=== PATIENT | female | born 1960 | race African-American/Black ===

== ENCOUNTER 2020-03-14 17:07 | Emergency (ER) | payer MEDICARE, SELFPAY ==
[2020-03-14 17:09] VITALS: BP 215/104; PULSE 97; RESP 15; TEMP 36.9; O2SAT 98
[2020-03-14 18:06] VITALS: BP 206/145; PULSE 97; RESP 22; O2SAT 97
[2020-03-14 18:17] VITALS: O2SAT 98
--- NOTE | 2020-03-14 18:35 | ED.GENADULT ---
HPI - General Adult General Chief complaint: Recheck/Abnormal Lab/Rx Stated complaint: BP elevated, just started new meds Time Seen by Provider: 03/14/20 17:47 Source: patient Mode of arrival: ambulatory Limitations: no limitations History of Present Illness HPI narrative: Patient checked her blood pressure today and was quite high so she came to the emergency room. She has no symptoms, no headache, no chest pain, no dizziness, no shortness of breath, no edema. She is on multiple blood pressure medicines, yesterday the had her stop her labetalol and start taking carvedilol due to an asthma medication. Prior to that change she states that her blood pressure was frequently 145 over something, and never this high. Onset (ago): hour(s) Exacerbating factors: none Treatments prior to arrival: none Related Data Home Medications Medication Instructions Recorded Confirmed amlodipine 03/14/20 atorvastatin 80 mg PO DAILY 03/14/20 carvedilol 12.5 mg PO BID 03/14/20 glipizide 10 mg PO DAILY 03/14/20 hydrochlorothiazide 25 mg PO DAILY 03/14/20 losartan 03/14/20 metformin 500 mg PO BID 03/14/20 montelukast mg 03/14/20 omeprazole 20 mg PO BID 03/14/20 Allergies Allergy/AdvReac Type Severity Reaction Status Date / Time No Known Allergies Allergy Verified 03/14/20 18:14 Review of Systems Review of Systems: All systems reviewed & are unremarkable except as noted in HPI and below [facility] Social History Social History Gender identity (if verbalized by the patient): Female Exam Const: General: no acute distress and alert Orientation/consciousness: patient oriented x3 HENMT: Head: normal to inspection Eyes: Pupils: Equal, round and reactive pupils present Resp: Effort & Inspection: normal respiratory effort Auscultation: clear to auscultation bilaterally Cardio: Rate: regular rate Rhythm: regular rhythm Skin: General skin exam: normal color Extrem: General: no pedal edema Psych: Mental Status: mental status grossly normal Course Course Emergency Course: Responded nicely to clonadine. Will give as PRN for SBP > 210. Not more than every 12 hrs. Will give referal to primary care and cardiology. Vital Signs Vital signs: Vital Signs Temperature 36.9 C 03/14/20 17:09 Pulse Rate 97 03/14/20 17:09 Respiratory Rate 15 03/14/20 17:09 Blood Pressure 215/104 H 03/14/20 17:09 Pulse Oximetry 98 03/14/20 17:09 Temperature 36.9 C 03/14/20 17:09 Pulse Rate 97 03/14/20 18:06 Respiratory Rate 22 H 03/14/20 18:06 Blood Pressure 206/145 H 03/14/20 18:06 Pulse Oximetry 98 03/14/20 18:17 Medical Decision Making Vital Signs Vital Signs: Vital Signs Temperature 36.9 C 03/14/20 17:09 Pulse Rate 97 03/14/20 17:09 Respiratory Rate 15 03/14/20 17:09 Blood Pressure 215/104 H 03/14/20 17:09 Pulse Oximetry 98 03/14/20 17:09 Temperature 36.9 C 03/14/20 17:09 Pulse Rate 97 03/14/20 18:06 Respiratory Rate 22 H 03/14/20 18:06 Blood Pressure 206/145 H 03/14/20 18:06 Pulse Oximetry 98 03/14/20 18:17 Discharge Plan Discharge Clinical Impression: Hypertension Qualifiers: Hypertension type: essential hypertension Qualified Code(s): I10 - Essential (primary) hypertension Patient Disposition: Home, Self-Care Condition: Improved Instructions: Antibiotic Form, Heart Healthy Diet (ED), Hypertension (ED) Additional Instructions: Take clonadine as prescribed. Check your blood pressure, if greater than 210 X 2 then take PRN medication. Follow up with primary care physician listed below and cardiology listed below to establish care as soon as possible. Return to ED if you have chest pain, shortness of breath or sever headache. Prescriptions: New clonidine HCl 0.1 mg tablet 0.1 mg PO PRN Qty: 7 RF: 0 No Action omeprazole 20 mg Capsule,Delayed Release(Dr/Ec) 20 mg PO BID RF: 0 me
[2020-03-14 19:00] VITALS: BP 215/98; PULSE 93; RESP 19
[2020-03-14 19:30] VITALS: BP 199/108; PULSE 92; O2SAT 97
--- NOTE | 2020-03-14 19:35 | ECG_ITS ---
Measurements Intervals [place] Rate: 82 P: 44 [place]: 164 QRS: -28 QRSD: 98 T: 19 QT: 377 QTc: 443 Interpretive Statements SINUS RHYTHM POSSIBLE LEFT ATRIAL ENLARGEMENT POSSIBLE LEFT VENTRICULAR HYPERTROPHY BORDERLINE R WAVE PROGRESSION, ANTERIOR LEADS BORDERLINE ECG Electronically Signed On 03-15-2020 8:26:53 [employer] by Rodney Montano D.O.
[2020-03-14] MEDS: cloNIDine HCL 0.1 MG TABLET PO (20:23)
[2020-03-14 20:38] VITALS: BP 161/98; PULSE 84; RESP 20; O2SAT 99
== END 2020-03-14 21:05 | disposition home or self-care (01) ==
PROVIDERS: Emergency Provider Emergency Medicine
DX: I10 Essential (primary) hypertension (principal); R94.31 Abnormal electrocardiogram [ECG] [EKG]; Z79.84 Long term (current) use of oral hypoglycemic drugs
CPT/HCPCS: 93005; 99283; A9270

== ENCOUNTER 2020-03-17 10:25 | Emergency (ER) | payer MEDICARE, SELFPAY ==
[2020-03-17 10:36] VITALS: BP 155/111; PULSE 82; RESP 16; TEMP 36.9; O2SAT 97
[2020-03-17 10:44] VITALS: BP 157/97; PULSE 82; RESP 18; TEMP 36.7; O2SAT 97
--- NOTE | 2020-03-17 11:23 | ECG_ITS ---
Measurements Intervals [place] Rate: 71 P: 38 ND: 175 QRS: -32 QRSD: 94 T: 32 QT: 405 QTc: 442 Interpretive Statements SINUS RHYTHM LEFT AXIS DEVIATION DELAYED PRECORDIAL R/S TRANSITION VOLTAGE CRITERIA FOR LVH BORDERLINE ECG Electronically Signed On 03-17-2020 14:49:55 [employer] by Rodney Montano D.O.
--- NOTE | 2020-03-17 11:23 | ED.GENADULT ---
HPI - General Adult General Chief complaint: Recheck/Abnormal Lab/Rx Stated complaint: htn Time Seen by Provider: 03/17/20 10:57 Source: patient History of Present Illness HPI narrative: Patient is a 59 y/o female complaining of hypertension. Related Data Home Medications Medication Instructions Recorded Confirmed amlodipine 03/14/20 atorvastatin 80 mg PO DAILY 03/14/20 carvedilol 12.5 mg PO BID 03/14/20 glipizide 10 mg PO DAILY 03/14/20 hydrochlorothiazide 25 mg PO DAILY 03/14/20 losartan 03/14/20 metformin 500 mg PO BID 03/14/20 montelukast mg 03/14/20 omeprazole 20 mg PO BID 03/14/20 Allergies Allergy/AdvReac Type Severity Reaction Status Date / Time No Known Allergies Allergy Verified 03/14/20 18:14 [facility] Social History Social History Gender identity (if verbalized by the patient): Female Course Vital Signs Vital signs: Vital Signs Temperature 36.9 C 03/17/20 10:36 Pulse Rate 82 03/17/20 10:36 Respiratory Rate 16 03/17/20 10:36 Blood Pressure 155/111 H 03/17/20 10:36 Pulse Oximetry 97 03/17/20 10:36 Temperature 36.7 C 03/17/20 10:44 Pulse Rate 82 03/17/20 10:44 Respiratory Rate 18 03/17/20 10:44 Blood Pressure 157/97 H 03/17/20 10:44 Pulse Oximetry 97 03/17/20 10:44 Medical Decision Making Vital Signs Vital Signs: Vital Signs Temperature 36.9 C 03/17/20 10:36 Pulse Rate 82 03/17/20 10:36 Respiratory Rate 16 03/17/20 10:36 Blood Pressure 155/111 H 03/17/20 10:36 Pulse Oximetry 97 03/17/20 10:36 Temperature 36.7 C 03/17/20 10:44 Pulse Rate 82 03/17/20 10:44 Respiratory Rate 18 03/17/20 10:44 Blood Pressure 157/97 H 03/17/20 10:44 Pulse Oximetry 97 03/17/20 10:44 Discharge Plan Discharge Prescriptions: No Action omeprazole 20 mg Capsule,Delayed Release(Dr/Ec) 20 mg PO BID RF: 0 metformin 500 mg Tablet 500 mg PO BID RF: 0 atorvastatin 80 mg Tablet 80 mg PO DAILY RF: 0 carvedilol 12.5 mg Tablet 12.5 mg PO BID RF: 0 glipizide 10 mg Tablet 10 mg PO DAILY RF: 0 amlodipine 5 mg Tablet RF: 0 montelukast 10 mg Tablet RF: 0 hydrochlorothiazide 25 mg Tablet 25 mg PO DAILY RF: 0 losartan 100 mg Tablet RF: 0 clonidine HCl 0.1 mg tablet 0.1 mg PO PRN Qty: 7 RF: 0
[2020-03-17] MEDS: amLODIPine BESYLATE 5 MG TABLET PO (11:31)
--- NOTE | 2020-03-17 11:37 | ED.GENADULT ---
HPI - General Adult General Chief complaint: Recheck/Abnormal Lab/Rx Stated complaint: htn Time Seen by Provider: 03/17/20 10:57 Source: patient History of Present Illness HPI narrative: Patient is a 59 y/o female complaining of hypertension. She states that her BP was in 190s systolic. She took Clonidine that was prescribed last Tuesday and it may have lower her BP somewhat. She denies any chest pain, SOB, headache, weakness or numbness. She was taking HCTZ 25 mg daily, Losartan 100 mg daily, Norvasc 5 mg daily and Coreg 12.5 mg twice daily. She was seen here 3 days ago for hypertension and Clonidine 0.1 mg was added to her antihypertensives. Related Data Home Medications Medication Instructions Recorded Confirmed amlodipine 03/14/20 atorvastatin 80 mg PO DAILY 03/14/20 carvedilol 12.5 mg PO BID 03/14/20 glipizide 10 mg PO DAILY 03/14/20 hydrochlorothiazide 25 mg PO DAILY 03/14/20 losartan 03/14/20 metformin 500 mg PO BID 03/14/20 montelukast mg 03/14/20 omeprazole 20 mg PO BID 03/14/20 Allergies Allergy/AdvReac Type Severity Reaction Status Date / Time No Known Allergies Allergy Verified 03/14/20 18:14 Review of Systems Constitutional: Constitutional: Denies chills, Denies fever(s), Denies headache(s) and Denies weakness Eyes: Eyes: Denies blurry vision ENT: Denies headache(s) and Denies neck pain Cardiovascular: Cardiovascular: Denies chest pain and Denies dyspnea Respiratory: Respiratory: Denies cough and Denies dyspnea Gastrointestinal: Gastrointestinal: Denies abdominal pain, Denies diarrhea, Denies nausea and Denies vomiting Genitourinary: Genitourinary: Denies hematuria and Denies dysuria Musculoskeletal: Musculoskeletal: Denies back pain and Denies neck pain Neurologic: Denies headache(s) and Denies weakness PMF Social History Social History Gender identity (if verbalized by the patient): Female Exam Const: General: no acute distress and well developed Orientation/consciousness: oriented to person, oriented to place, oriented to time and patient oriented x3 HENMT: Head: normocephalic Ears: external ears normal General nose exam: Normal external nose present Eyes: General: appearance normal, both eyes and all related structures Conjunctivae: conjunctivae normal Neck: Neck: normal visual inspection and full ROM Chest: Chest palpation & inspection: normal inspection of the chest and no tenderness Resp: Effort & Inspection: normal respiratory effort Auscultation: clear to auscultation bilaterally Cardio: Rate: regular rate Rhythm: regular rhythm GI: GI Palp: No abdominal tenderness and Yes Soft to palpation Skin: General skin exam: normal color and turgor normal Neuro: General: oriented to person, oriented to place, oriented to time and patient oriented x3 Cognition (Neuro): normal cognition Extrem: General: normal to inspection, full ROM and no pedal edema Psych: Appearance: grossly normal Mental Status: mental status grossly normal Affect: normal affect Course Vital Signs Vital signs: Vital Signs Temperature 36.9 C 03/17/20 10:36 Pulse Rate 82 03/17/20 10:36 Respiratory Rate 16 03/17/20 10:36 Blood Pressure 155/111 H 03/17/20 10:36 Pulse Oximetry 97 03/17/20 10:36 Temperature 36.7 C 03/17/20 10:44 Pulse Rate 84 03/17/20 14:10 Respiratory Rate 18 03/17/20 14:10 Blood Pressure 160/97 H 03/17/20 14:10 Pulse Oximetry 99 03/17/20 14:10 Medical Decision Making Vital Signs Vital Signs: Vital Signs Temperature 36.9 C 03/17/20 10:36 Pulse Rate 82 03/17/20 10:36 Respiratory Rate 16 03/17/20 10:36 Blood Pressure 155/111 H 03/17/20 10:36 Pulse Oximetry 97 03/17/20 10:36 Temperature 36.7 C 03/17/20 10:44 Pulse Rate 84 03/17/20 14:10 Respiratory Rate 18 03/17/20 14:10 Blood Pressure 160/97 H 03/17/20 14:10 Pulse Oximetry 99 03/17/20 14:1
[2020-03-17 12:08] LABS: Basophils Percent Auto 0.3 % (0.2-1.2); Eosinophils Absolute Auto 0.1 K/mm3 (0-0.3); Eosinophils Percent Auto 0.7 % (0-4.4); Hematocrit 41.4 % (37.0-47.0); Hemoglobin 14.2 g/dL (12.0-15.0); Immature Granulocyte Absolute 0.03 K/mm3 (0.00-0.031); Immature Granulocyte Percent A 0.3 % (0-0.5); Lymphocytes Absolute Auto 2.58 K/mm3 (0.9-3.2); Mean Corpuscular HGB Conc 34.3 g/dl (32-36); Mean Corpuscular Hemoglobin 31.1 pg (26-34); Mean Corpuscular Volume 90.6 fl (80-100); Mean Platelet Volume 11.6 fl (7.4-10.4); Monocytes Absolute Auto 0.8 K/mm3 (0.1-0.6); Monocytes Percent Auto 8.3 % (2.6-8.5); Neutrophils Percent Auto 63.4 % (45.5-73.1); Platelet Count Result 236 k/mm3 (150-375); Red Blood Count 4.57 M/mm3 (4.2-5.4); Red Cell Distribution Width 12.6 % (11.5-14.5); White Blood Count 9.5 K/mm3 (4.5-10.0)
[2020-03-17 12:14] LABS: Anion Gap 10 mmol/L (8-16); Blood Urea Nitrogen 14 mg/dL (7-17); Calcium 9.4 mg/dL (8.4-10.2); Carbon Dioxide 32 mmol/L (22-30); Chloride 98 mmol/L (98-107); Estimated CRCL calculation 84 ml/min; Estimated Glomerular Filt Rate > 60; Glucose 188 mg/dL (65-105); Potassium 3.5 mmol/L (3.4-5.0); Sodium 140 mmol/L (137-145)
[2020-03-17 12:39] VITALS: BP 160/84; PULSE 81; RESP 18; O2SAT 99
[2020-03-17 14:10] VITALS: BP 160/97; PULSE 84; RESP 18; O2SAT 99
== END 2020-03-17 14:11 | disposition home or self-care (01) ==
PROVIDERS: Emergency Provider Emergency Medicine
DX: I10 Essential (primary) hypertension (principal); R94.31 Abnormal electrocardiogram [ECG] [EKG]; Z79.84 Long term (current) use of oral hypoglycemic drugs
CPT/HCPCS: 36415; 80048; 85025; 93005; 99283; A9270

== ENCOUNTER 2021-11-20 00:43 | Inpatient (IN) | payer MEDICARE, MEDICAID, SELFPAY ==
[2021-11-20] VITALS (11 sets, daily range): BP systolic 136–194; BP diastolic 63–98; PULSE 65–97; RESP 14–20; TEMP 36.1–36.4; O2SAT 95–100
--- NOTE | ~2021-11-20 | US_ITS ---
US renal BI 11/20/2021 10:35 Procedure: Realtime transabdominal ultrasound of the kidneys and bladder. Indication: Acute renal insufficiency Comparison: No prior studies for comparison. Findings: Renal echotexture is normal bilaterally without hydronephrosis, contour deforming mass or r enal calculus. The right kidney measures 13.7 cm and left kidney measures 12.6 cm. Bladder is not di stended for evaluation. Incidental note is made of fatty infiltration of the liver. Impression: 1: Unremarkable renal ultrasound. No stones, masses or hydronephrosis. Reviewed, dictated and finalized at location A. Impression: 1: Unremarkable renal ultrasound. No stones, masses or hydronephrosis.
--- NOTE | 2021-11-20 01:34 | ED.GENADULT ---
HPI - General Adult General Chief complaint: Unspecified <Kaye De La Paz PA-C - Last Filed: 11/21/21 09:04> Stated complaint: rectal bleed, hx hemorrhoids <Kaye De La Paz PA-C - Last Filed: 11/21/21 09:04> Time Seen by Provider: 11/20/21 01:29 <Kaye De La Paz PA-C - Last Filed: 11/21/21 09:04> History of Present Illness HPI narrative: Patient is a 61-year-old female with a history of HTN, hemorrhoids here for evaluation of bright red blood on the tissue when she wiped after a BM earlier today. States that she has been constipated recently and has been straining to have bowel movements. She denies any blood mixed in the stool, any abdominal pain, rectal pain, headedness, dizziness, syncope. She has a history of hemorrhoids and states that this is how they usually present. Patient states that she has been compliant with her antihypertensives, which include losartan, hydrochlorothiazide, triamterene, carvedilol, amlodipine. She is not having any chest pain, shortness of breath, headaches, lightheadedness. <Kaye De La Paz PA-C - Last Filed: 11/21/21 09:04> Related Data Home medications: Home Medications Medication Instructions Recorded Confirmed amlodipine 5 mg tablet (Norvasc) 10 mg PO DAILY 03/14/20 11/20/21 atorvastatin 80 mg tablet 80 mg PO DAILY 03/14/20 11/20/21 glipizide 10 mg tablet 10 mg PO TID 03/14/20 11/20/21 metformin 500 mg tablet 500 mg PO BID 03/14/20 11/20/21 montelukast 10 mg tablet 1 mg PO BID 03/14/20 11/20/21 (Singulair) omeprazole 20 mg capsule,delayed 20 mg PO BID 03/14/20 11/20/21 release Advair HFA 2 puff BYMOUTH Q4H PRN Shortness 11/20/21 11/20/21 Of Breath Or Wheezing losartan 100 1 tablet PO DAILY 11/20/21 11/20/21 mg-hydrochlorothiazide 25 mg tablet metoprolol succinate 25 mg 25 mg PO DAILY 11/20/21 11/20/21 tablet,extended release 24 hr triamterene 37.5 1 cap PO DAILY 11/20/21 11/20/21 mg-hydrochlorothiazide 25 mg capsule <Kaye De La Paz PA-C - Last Filed: 11/21/21 09:04> Allergies/adverse reactions: Allergies Allergy/AdvReac Type Severity Reaction Status Date / Time No Known Allergies Allergy Verified 11/20/21 01:30 <Kaye De La Paz PA-C - Last Filed: 11/21/21 09:04> Review of Systems Review of Systems: Gen: Denies fevers or chills Eyes: Denies eye pain or visual change ENT: Denies congestion Respiratory: Denies shortness of breath or cough CV: Denies chest pain or palpitations GI: Reports blood on toilet tissue with wiping. Denies abdominal pain nausea, emesis or diarrhea denies burning, urgency, frequency or hematuria Musculoskeletal: Denies back pain or muscle pain Neuro: Denies numbness, tingling, weakness or focal weakness Skin: Denies rash Except as documented, all other systems reviewed and negative <Kaye De La Paz PA-C - Last Filed: 11/21/21 09:04> [facility] Past Medical History Medical History: Medical History Essential hypertension GERD (gastroesophageal reflux disease) Hyperlipidemia Type 2 diabetes mellitus <Kaye De La Paz PA-C - Last Filed: 11/21/21 09:04> Family History Family History: Family History Mother Diabetes mellitus Heart disease Hypertension Sibling ESRD (end stage renal disease) on dialysis <ANAID Dickson Last Filed: 11/21/21 09:04> Social History Social History: Social History Smoking status: Never smoker Alcohol intake: never Substance use: never Gender identity (if verbalized by the patient): Female Spiritual care concerns: No <MELANY Dickson-C - Last Filed: 11/21/21 09:04> Exam Narrative: APPEARANCE: Well appearing, no pain in distress, well-nourished. Head: Normocephalic and atraumatic. E
[2021-11-20 02:06] LABS: Basophils Percent Auto 0.4 % (0.2-1.2); Eosinophils Absolute Auto 0.1 K/mm3 (0-0.3); Eosinophils Percent Auto 1.2 % (0-4.4); Hematocrit 37.4 % (37.0-47.0); Hemoglobin 12.6 g/dL (12.0-15.0); Immature Granulocyte Absolute 0.02 K/mm3 (0.00-0.031); Immature Granulocyte Percent A 0.2 % (0-0.5); Lymphocytes Absolute Auto 2.17 K/mm3 (0.9-3.2); Lymphocytes Percent Auto 25.5 % (18.3-44.2); Mean Corpuscular HGB Conc 33.7 g/dl (32-36); Mean Corpuscular Hemoglobin 30.8 pg (26-34); Mean Corpuscular Volume 91.4 fl (80-100); Mean Platelet Volume 11.3 fl (7.4-10.4); Monocytes Absolute Auto 0.9 K/mm3 (0.1-0.6); Monocytes Percent Auto 10.9 % (2.6-8.5); Neutrophils Absolute Auto 5.3 K/mm3 (1.3-6.7); Neutrophils Percent Auto 61.8 % (45.5-73.1); Platelet Count Result 170 k/mm3 (150-375); Red Blood Count 4.09 M/mm3 (4.2-5.4); Red Cell Distribution Width 13.2 % (11.5-14.5); White Blood Count 8.5 K/mm3 (4.5-10.0)
[2021-11-20 02:17] LABS: Alanine Aminotransferase 23 U/L (6-35); Alkaline Phosphatase 91 U/L (38-126); Anion Gap 10 mmol/L (8-16); Aspartate Amino Transferase 21 U/L (14-36); Bilirubin,Total 0.5 mg/dL (0.2-1.3); Blood Urea Nitrogen 29 mg/dL (7-17); Calcium 9.4 mg/dL (8.4-10.2); Carbon Dioxide 25 mmol/L (22-30); Chloride 104 mmol/L (98-107); Estimated CRCL calculation 30 ml/min; Estimated Glomerular Filt Rate 25; Glucose 262 mg/dL (65-110); Potassium 3.4 mmol/L (3.4-5.0); Sodium 139 mmol/L (137-145)
[2021-11-20] MEDS: hydrALAZINE HCL 20 MG/ML VIAL 10 MG IV PUSH (02:55)
[2021-11-20 03:01] LABS: Appearance Urine Clear (Clear); Bilirubin Urine Negative (Negative); Blood Urine Trace-lysed (Negative); Glucose Urine UA Negative (Negative); Ketones Urine Negative (Negative); Leukocyte Esterase Ur 1+ LEU/UL (Negative); Nitrate Urine Negative (Negative); Protein Urine Negative (Negative); Urobilinogen Urine 0.2 mg/dL (<2.0)
[2021-11-20 03:04] LABS: Bacteria Urine Trace /hpf; Mucus Urine Rare /lpf; RBC Urine 0-2 /hpf (0-2); Squamous Epithelial Cell Urine Occasional /hpf (Few); WBC Urine 21-30 /hpf
[2021-11-20 03:33] LABS: Add Urine Microscopic? YES; Color Urine Light Yellow (Yellow)
[2021-11-20 03:35] LABS: SARS-CoV-2 RNA PCR Negative
--- NOTE | 2021-11-20 03:47 | PM.IMHP ---
H&P: HPI History of Present Illness Date/Time: 11/20/21 03:47 Chief Complaint: rectal bleeding Narrative: Patient is a 61-year-old female past medical history of essential hypertension, type 2 diabetes, hyperlipidemia, GERD, asthma presents to ED with complaints of rectal bleeding. Patient has known hemorrhoids, very constipated recently leading to her straining with bowel movements. For her blood pressure she has been on multiple agents, recently added triamterene. She is being managed by PCP, and does not see any specialist. Patient states she had a sister that was on dialysis. Her only complaint was hemorrhoids, she denies fevers, chills, nausea, vomiting, chest pain, shortness of breath. In the ED: Patient was found to be hypertensive 172 over a, patient given IV hydralazine 10 mg. Patient was found to have elevated creatinine at 2.4 ( less comparison is 0.8 in 2019). patient admitted for observation for acute kidney injury. Review of Systems Review of Systems: Constitutional: No Fever, No Chills, No Night Sweats, No Fatigue, No Malaise ENT/Mouth: No Hearing Changes, No Ear Pain, No Nasal Congestion, No Sinus Pain, No Hoarseness, No sore throat, No Rhinorrhea, No Swallowing Difficulty Eyes: No Eye Pain, No Redness, No Vision Changes Cardiovascular: No Chest Pain, No Palpitations, No Dyspnea on Exertion, No Orthopnea, No Claudication, No Edema Respiratory: No Cough, No Sputum, No Wheezing, No Shortness of Breath Gastrointestinal: No Nausea, No Vomiting, No Diarrhea, No Constipation, No Abdominal Pain, No Heartburn, endorses rectal bleed Genitourinary: No Dysuria, No Urinary Frequency, No Hematuria, No Urinary Incontinence, No Urgency Musculoskeletal: No Arthralgias, No Myalgias, No Joint Swelling, No Joint Stiffness, No Back Pain Skin: No Skin Lesions, No Pruritis, No Hair Changes Neuro: No Weakness, No Numbness, No Paresthesias, No Loss of Consciousness, No Syncope, No Dizziness, No Headache Psych: No Anxiety/Panic, No Depression, No Insomnia Heme: No Bruising, No Bleeding Lymph: No Adenopathy Endocrine: No Polyuria, No Polydipsia, No Temperature Intolerance PMFSH Past Medical History Medical History Essential hypertension GERD (gastroesophageal reflux disease) Hyperlipidemia Type 2 diabetes mellitus Family History Family History (Updated 11/20/21 @ 04:20 by Tamara Kendrick DO) Mother Diabetes mellitus Heart disease Hypertension Sibling ESRD (end stage renal disease) on dialysis Social History Social History Gender identity (if verbalized by the patient): Female Meds Home Medications and Allergies Home Medications Medication Instructions Recorded Confirmed Type amlodipine 5 mg tablet 03/14/20 History atorvastatin 80 mg tablet 80 mg PO DAILY 03/14/20 History carvedilol 12.5 mg tablet 12.5 mg PO BID 03/14/20 History clonidine HCl 0.1 mg tablet 0.1 mg PO PRN #7 tabs 03/14/20 Rx glipizide 10 mg tablet 10 mg PO DAILY 03/14/20 History hydrochlorothiazide 25 mg tablet 25 mg PO DAILY 03/14/20 History losartan 100 mg tablet 03/14/20 History metformin 500 mg tablet 500 mg PO BID 03/14/20 History montelukast 10 mg tablet mg 03/14/20 History omeprazole 20 mg capsule,delayed 20 mg PO BID 03/14/20 History release Allergies Allergy/AdvReac Type Severity Reaction Status Date / Time No Known Allergies Allergy Verified 11/20/21 01:30 Vital Signs Vital Signs - 24 hr 11/20/21 00:52 11/20/21 02:06 11/20/21 03:02 Temperature 36.4 C Pulse Rate 90 83 Respiratory Rate 18 18 14 Blood Pressure 194/87 H 172/88 H Pulse Oximetry 100 100 96 Oxygen Delivery Room Air Exam Narrative: - GENERAL: pleasant obese woman in no acute distress. Well-nourished. - EYES: EOMI. Anicteric. - HENT: Moist mucous membranes. - LUNGS: Clear to auscultation bilaterall
--- NOTE | 2021-11-20 05:00 | ADMGEN ---
This patient, Albertina Bass, was admitted to [facility] Surg Room 325-01. Patient/family oriented to hospital policies and general routines including ID bracelet, bed and alarms, visiting hours, pain management, procedures, bathroom and other care routines, personal items, smoking policy, room service/diet, and visiting hours. Information on how to activate the Rapid Response Team has been discussed. Patient/Family are encouraged to report perceived risks to care and to ask questions if they do not understand what they are told or what they should do.
[2021-11-20] MEDS: SODIUM CHLORIDE 0.9% IV 1,000 ML 100 ML IV CONT (06:01)
[2021-11-20 06:19] LABS: Albumin Level 4.1 g/dL (3.5-5.1); Anion Gap 8 mmol/L (8-16); Blood Urea Nitrogen 29 mg/dL (7-17); Calcium 9.2 mg/dL (8.4-10.2); Carbon Dioxide 25 mmol/L (22-30); Chloride 104 mmol/L (98-107); Cholesterol 146 mg/dL (0-200); Estimated CRCL calculation 30 ml/min; Estimated Glomerular Filt Rate 25; Glucose 265 mg/dL (65-110); HDL Direct 25 mg/dL; Phosphorus 5.9 mg/dL (2.5-4.5); Potassium 3.5 mmol/L (3.4-5.0); Sodium 137 mmol/L (137-145); Triglycerides 291 mg/dL (<150)
[2021-11-20 06:30] LABS: LDL Cholesterol Direct 62 mg/dL
[2021-11-20 06:40] LABS: Hemoglobin A1C 10.2 % (<5.7)
--- NOTE | 2021-11-20 07:47 | PM.IMPN ---
Progress Note: A&P Additional Plan See H&P for full detail as it was completed after midnight. Awaiting nephrology consult. Renal US. Sent urine lytes, spot protein and microalbumin creatinine ratio. Subjective Date/time seen: 11/20/21 07:47 Patient says she moved here form [facility] about a year ago and says her previous PCP always check her labs. She says she never had abnormal labs in the past. She says she feels much better. Exam Narrative: GENERAL: NAD, cooperative HEENT: Normocephalic, atraumatic, anicteric NECK: Supple CV: Normal S1, S2, RRR, No MRG RESP: CTAB, Normal work of breathing. Abdomen: Soft, non-tender, non-distended, +BS EXTREMITIES: Warm and well perfused, no clubbing, cyanosis, or edema. SKIN: warm, dry and intact. NEURO: CN 2-12 grossly intact. Objective Data Vital Signs Vital Signs: Vital Signs - 24 hr 11/20/21 00:52 11/20/21 02:06 11/20/21 03:02 Temperature 97.6 F Pulse Rate 90 83 Respiratory Rate 18 18 14 Blood Pressure 194/87 H 172/88 H Pulse Oximetry 100 100 96 Oxygen Delivery Room Air 11/20/21 04:08 11/20/21 04:30 11/20/21 04:40 Temperature 97.1 F L Pulse Rate 80 97 81 Respiratory Rate 14 19 18 Blood Pressure 167/93 H 162/89 H 189/98 H Pulse Oximetry 97 99 97 Oxygen Delivery Intake/Output Intake/Output: Intake & Output 11/17/21 11/18/21 11/19/21 11/20/21 23:59 23:59 23:59 23:59 Intake Total 0 Balance 0 Meds/Results Medications: Active Medications Generic Name Dose Route Start Last Admin Trade Name Freq PRN Reason Stop Dose Admin Acetaminophen 650 mg 11/20/21 04:21 Acetaminophen 325 Mg Tablet PO Q4H PRN Mild Pain (1-3) or Fever Amlodipine Besylate 10 mg 11/20/21 09:00 Amlodipine Besylate 5 Mg Tablet PO DAILY [facility] Atorvastatin Calcium 80 mg 11/20/21 09:00 Atorvastatin 40 Mg Tablet PO DAILY [facility] Carvedilol 75 mg 11/20/21 09:00 Carvedilol 25 Mg Tablet PO DAILY [facility] Dextrose 12.5 gm 11/20/21 04:23 Dextrose 50% 25 Gm/50 Ml Syringe IV PUSH PRN PRN Hypoglycemia Protocol Docusate Sodium 100 mg 11/20/21 09:00 Docusate Sodium 100 Mg Capsule PO Q12HR DORIS Glipizide 10 mg 11/20/21 09:00 Glipizide 5 Mg Tablet PO TID [facility]ORIS Glucagon 1 mg 11/20/21 04:23 Glucagon For Inj 1 Mg Vial IM PRN PRN Hypoglycemia Protocol Glucose 15 gm 11/20/21 04:23 Glucose Oral Gel 15 Gm Of Glucse In 37.5 Gm Tube PO PRN PRN Hypoglycemia Protocol Hydralazine HCl 10 mg 11/20/21 04:29 Hydralazine Hcl 20 Mg/Ml Vial IV PUSH Q4H PRN Blood Pressure - High Hydrochlorothiazide 25 mg 11/20/21 09:00 Hydrochlorothiazide 25 Mg Tablet PO DAILY DORIS Sodium Chloride 1,000 mls @ 100 mls/hr 11/20/21 04:25 11/20/21 06:01 Normal Saline Iv IV CONT 100 mls/hr .Q10H DORIS Administration Dextrose 1,000 mls @ 100 mls/hr 11/20/21 04:23 Dextrose 5% 1,000 Ml IVPB PRN PRN Hypoglycemia Protocol Insulin Aspart 2 - 5 units 11/20/21 08:00 Insulin Aspart (*Bk) 100 Units/Ml SUB-Q TIDWM [facility] Protocol Losartan Potassium 100 mg 11/20/21 09:00 Losartan Potassium 100 Mg Tablet PO DAILY [facility] Metformin HCl 500 mg 11/20/21 09:00 Metformin Hcl 500 Mg Tablet PO BID [facility] Metoprolol Succinate 25 mg 11/20/21 09:00 Metoprolol Succinate Ext Rel 25 Mg Tabcr PO DAILY [facility] Montelukast Sodium 10 mg 11/20/21 09:00 Montelukast Sodium 10 Mg Tablet PO DAILY [facility] Pantoprazole Sodium 40 mg 11/20/21 09:00 Pantoprazole 40 Mg Tablet PO BID [facility] Polyethylene Glycol 17 gm 11/20/21 09:00 Polyethylene Glycol 3350 17 Gm Powd.Pack PO QAM [facility] Fluticasone/Salmeterol 2 puff 11/20/21 09:00 Fluticasone/Salmeterol 115-21 Mcg Inhaler 1 Puff INHALATION DAILY [facility] Triamterene/Hydrochlorothiazide 1 tab 11/20/21 09:00 Triamterene 37.5 Mg/Hctz
[2021-11-20 08:11] LABS: Glucose Point of Care 212 mg/dl (65-105)
[2021-11-20] MEDS: INSULIN ASPART (*BKC) 100 UNITS/ML SUB-Q ×3 (09:15→16:57)
[2021-11-20] MEDS: carvediloL 25 MG TABLET 75 MG PO (09:16)
[2021-11-20] MEDS: MONTELUKAST SODIUM 10 MG TABLET PO (09:17)
[2021-11-20] MEDS: DOCUSATE SODIUM 100 MG CAPSULE PO ×2 (09:36→20:37)
[2021-11-20] MEDS: hydroCHLOROthiazide 25 MG TABLET PO (09:36)
[2021-11-20] MEDS: METOPROLOL SUCCINATE EXT REL 25 MG TABCR PO (09:36)
[2021-11-20] MEDS: PANTOPRAZOLE 40 MG TABLET PO ×2 (09:36→16:54)
[2021-11-20] MEDS: polyethylene glycoL 3350 17 GM POWD.PACK PO (09:36)
[2021-11-20] MEDS: ATORVASTATIN 40 MG TABLET 80 MG PO (09:37)
[2021-11-20] MEDS: amLODIPine BESYLATE 5 MG TABLET 10 MG PO (09:37)
[2021-11-20 11:50] LABS: Glucose Point of Care 225 mg/dl (65-105)
[2021-11-20] MEDS: FLUTICASONE/SALMETEROL 115-21 MCG INHALER 1 PUFF 2 PUFF INHALATION (16:39)
[2021-11-20 16:50] LABS: Creatinine Urine 49.7 mg/dL
[2021-11-20 16:52] LABS: Sodium Urine Random 71 meq/L
[2021-11-20 16:54] LABS: MALB Creatinine Ratio 61.6 mg/g (0-30); Microalbumin Urine Random 30.6 mg/L (0-16.7)
[2021-11-20 16:58] LABS: Glucose Point of Care 250 mg/dl (65-105)
[2021-11-20 18:14] LABS: Total Protein Urine Random 16 mg/dL
[2021-11-20 21:12] LABS: Glucose Point of Care 259 mg/dl (65-105)
[2021-11-21 05:37] VITALS: BP 165/93; PULSE 68; RESP 20; TEMP 36.3; O2SAT 96
[2021-11-21] MEDS: ACETAMINOPHEN 325 MG TABLET 650 MG PO (05:41)
[2021-11-21 06:40] LABS: Basophils Percent Auto 0.4 % (0.2-1.2); Eosinophils Absolute Auto 0.1 K/mm3 (0-0.3); Eosinophils Percent Auto 1.5 % (0-4.4); Hematocrit 38.2 % (37.0-47.0); Hemoglobin 13.1 g/dL (12.0-15.0); Immature Granulocyte Absolute 0.02 K/mm3 (0.00-0.031); Immature Granulocyte Percent A 0.3 % (0-0.5); Lymphocytes Absolute Auto 2.63 K/mm3 (0.9-3.2); Lymphocytes Percent Auto 38.5 % (18.3-44.2); Mean Corpuscular HGB Conc 34.3 g/dl (32-36); Mean Corpuscular Volume 90.5 fl (80-100); Mean Platelet Volume 11.7 fl (7.4-10.4); Monocytes Absolute Auto 0.7 K/mm3 (0.1-0.6); Monocytes Percent Auto 9.7 % (2.6-8.5); Neutrophils Absolute Auto 3.4 K/mm3 (1.3-6.7); Neutrophils Percent Auto 49.6 % (45.5-73.1); Platelet Count Result 174 k/mm3 (150-375); Red Blood Count 4.22 M/mm3 (4.2-5.4); Red Cell Distribution Width 13.3 % (11.5-14.5); White Blood Count 6.8 K/mm3 (4.5-10.0)
[2021-11-21 06:50] LABS: Anion Gap 4 mmol/L (8-16); Blood Urea Nitrogen 20 mg/dL (7-17); Calcium 8.9 mg/dL (8.4-10.2); Carbon Dioxide 33 mmol/L (22-30); Chloride 100 mmol/L (98-107); Estimated CRCL calculation 58 ml/min; Estimated Glomerular Filt Rate 56; Glucose 218 mg/dL (65-110); Potassium 3.4 mmol/L (3.4-5.0); Sodium 137 mmol/L (137-145)
[2021-11-21 06:51] LABS: Hemoglobin A1C 10.3 % (<5.7)
[2021-11-21 08:01] LABS: Glucose Point of Care 249 mg/dl (65-105)
[2021-11-21] MEDS: INSULIN ASPART (*BKC) 100 UNITS/ML SUB-Q ×4 (08:55→12:41)
[2021-11-21 09:01] VITALS: PULSE 70
[2021-11-21] MEDS: METOPROLOL SUCCINATE EXT REL 25 MG TABCR PO (09:01)
[2021-11-21] MEDS: carvediloL 25 MG TABLET 75 MG PO (09:01)
[2021-11-21] MEDS: MONTELUKAST SODIUM 10 MG TABLET PO (09:01)
[2021-11-21] MEDS: PANTOPRAZOLE 40 MG TABLET PO (09:01)
[2021-11-21] MEDS: amLODIPine BESYLATE 5 MG TABLET 10 MG PO (09:01)
[2021-11-21] MEDS: ATORVASTATIN 40 MG TABLET 80 MG PO (09:01)
[2021-11-21] MEDS: hydroCHLOROthiazide 25 MG TABLET PO (09:01)
--- NOTE | 2021-11-21 09:45 | PM.DS ---
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 hydralazine available # hemorrhoids - patient straining with bowel movements, hypertensive and not anemic - will treat constipation: start Colace and MiraLax scheduled - last colonoscopy: # other chronic conditions - will resume home meds after they are reconciled - [id number] type 2 diabetes: Will do Accu-Cheks a.c. HS, sliding scale insulin low dose, will resume home meds on discharge - hyperlipidemia: Continue atorvastatin - asthma: Continue singular - GERD: Continue PPI Diet: Regular DVT prophylaxis: SCDs (avoid chemoprophylaxis with hemorrhoids bleeding) Code status: Full code Disposition: observation, either home later today or tomorrow DS: Summary Hospital Course Reason for hospitalization: 61 years old female was admitted with with complaint of having hemorrhoids and was found to have acute q.d. today Hospital Course: 61 years old female was admitted complained of any hemorrhoids. Patient was found to have acute kidney injury. Patient blood pressure was high. Patient blood pressure was controlled and patient was given MiraLax for constipation patient repeat creatinine is 1.2. Today patient is feeling better and she was to complete discharge home. Patient was discharged in stable condition. Outpatient follow-up scheduled with primary care, Nephrology and Gastroenterology. Status at Discharge Cognitive/behavioral status at discharge: Stable Time Spent with Patient Time attestation: Total time spent providing and/or coordinating discharge services: less than 30 minutes Exam Narrative: GENERAL: NAD, cooperative HEENT: Normocephalic, atraumatic, anicteric NECK: Supple CV: Normal S1, S2, RRR, No MRG RESP: CTAB, Normal work of breathing. Abdomen: Soft, non-tender, non-distended, +BS EXTREMITIES: Warm and well perfused, no clubbing, cyanosis, or edema. SKIN: warm, dry and intact. NEURO: CN 2-12 grossly intact. DS: Data Data Completed and Pending Labs on day of discharge: Labs from last 24 hours 11/21/21 11/21/21 11/21/21 07:54 06:01 06:01 WBC 6.8 RBC 4.22 Hgb 13.1 Hct 38.2 MCV 90.5 MCH 31.0 MCHC 34.3 RDW 13.3 Plt Count 174 MPV 11.7 H Immature Gran % (Auto) 0.3 Neut % (Auto) 49.6 Lymph % (Auto) 38.5 Bertie % (Auto) 9.7 H Eos % (Auto) 1.5 Baso % (Auto) 0.4 Lymph # (Auto) 2.63 Bertie # (Auto) 0.7 H Eos # (Auto) 0.1 Baso # (Auto) 0.0 Abs Immat Gran (auto) 0.02 Absolute Neuts (auto) 3.4 Absolute Nucleated RBC 0.0 Nucleated RBC % 0.0 Sodium 137 Potassium 3.4 Chloride 100 Carbon Dioxide 33 H Anion Gap 4 L BUN 20 H Creatinine 1.20 H Estim Creat Clear Calc 58 Estimated GFR 56 L Glucose 218 H POC Capillary Glucose 249 H Hemoglobin A1c Calcium 8.9 Urine Protein Ur Random Microalbumin U Random Total Protein Ur Random Sodium Urine Creatinine Microalb/Creat Ratio 11/21/21 11/20/21 11/20/21 06:01 20:40 16:54 WBC RBC Hgb Hct MCV MCH MCHC RDW Plt Count MPV Immature Gran % (Auto) Neut %
[2021-11-21] MEDS: DOCUSATE SODIUM 100 MG CAPSULE PO (09:47)
[2021-11-21] MEDS: polyethylene glycoL 3350 17 GM POWD.PACK PO (09:47)
[2021-11-21 11:30] LABS: Glucose Point of Care 271 mg/dl (65-105)
== END 2021-11-21 13:50 | disposition home or self-care (01) | DRG 684 ==
LOC: ANHED 03:48 → ANH3MEDSUR 04:06
PROVIDERS: Family Medicine; Physician Assistant; Admitting Provider Student in an Organized Health Care Education/Training Program; Emergency Provider Emergency Medicine; Visit Provider Internal Medicine
DX: N17.9 Acute kidney failure, unspecified (principal); I10 Essential (primary) hypertension; J45.909 Unspecified asthma, uncomplicated; K21.9 Gastro-esophageal reflux disease without esophagitis; E78.5 Hyperlipidemia, unspecified; E11.9 Type 2 diabetes mellitus without complications; K64.9 Unspecified hemorrhoids; Z20.822 Contact with and (suspected) exposure to COVID-19
CPT/HCPCS: 36415; 76775; 80048; 80053; 80061; 80069; 81001; 81002; 81050; 82043; 82948; 83036; 83735; 84156; 84300; 85025; 87077; 87086; 87088; 94640; 96374; 99285; A9270; C9803; G0378; J0360; J1815; J7030; U0003; U0005

== ENCOUNTER 2022-03-10 14:30 | Outpatient (RCR) | payer MEDICARE, SELFPAY ==
[2021-12-30 09:26] VITALS: BMI 43.2
[2021-12-30 10:30] VITALS: BMI 43.2
== END 2022-03-15 09:15 | disposition home or self-care (01) ==
LOC: ANHDMC 14:30
PROVIDERS: PCP Family Medicine; Visit Provider Physician Assistant Medical
DX: E11.65 Type 2 diabetes mellitus with hyperglycemia (principal); Z71.3 Dietary counseling and surveillance; Z71.89 Other specified counseling
CPT/HCPCS: 97802; 99199; G0108; G0109

== ENCOUNTER 2022-05-01 11:21 | Outpatient (CLI) | payer MEDICARE, SELFPAY ==
--- NOTE | ~2022-05-01 | MM_ITS ---
EXAMINATION: MM screening melinda BI w dona HISTORY: Screening mammogram TECHNIQUE: Craniocaudal and mediolateral oblique 3-D tomosynthesis images were obtained and synthetic 2-D images were generated. CAD analysis was submitted and interpreted. COMPARISON: No prior mammogram is available for comparison at this institution. BREAST PARENCHYMAL COMPOSITION: The breasts are almost entirely fatty. FINDINGS: There is no evidence of suspicious mass, calcification, or architectural distortion to sugg est malignancy in either breast. There has been no suspicious interval change. IMPRESSION: 1. No mammographic evidence of malignancy. 2. Recommend routine screening mammography in one year. BI-RADS Category 1: Negative Reviewed, dictated and finalized at location A. CLERK
== END 2022-05-01 11:22 | disposition home or self-care (01) ==
PROVIDERS: PCP Family Medicine; Visit Provider Physician Assistant Medical
DX: Z12.31 Encounter for screening mammogram for malignant neoplasm of breast (principal)
CPT/HCPCS: 77063; 77067

== ENCOUNTER 2022-06-17 14:30 | Outpatient (RCR) | payer MEDICARE, SELFPAY | END 2022-06-24 15:04 | disposition home or self-care (01) | LOC: ANHDMC 14:30 | PROVIDERS: PCP Family Medicine; Visit Provider Physician Assistant Medical | DX: E11.65 Type 2 diabetes mellitus with hyperglycemia (principal); Z71.89 Other specified counseling | CPT/HCPCS: G0109 ==

== ENCOUNTER → 2022-07-16 10:49 | Outpatient (CLI) | payer MEDICARE, SELFPAY ==
--- NOTE | ~2022-07-16 | XR_ITS ---
Right Knee Technique: AP, lateral, and sunrise views were obtained. Clinical History: Pain Findings: No fracture or dislocation is seen. There is moderate to advanced degenerative change of th e medial compartment. There is mild degenerative change of the lateral and patellofemoral compartment s. Soft tissues are unremarkable. No joint effusion is seen. Impression: Tricompartmental osteoarthritis, as detailed above, worst in the medial compartment. Reviewed, dictated and finalized at location M. Impression: Tricompartmental osteoarthritis, as detailed above, worst in the medial compart ment.
== END ==
PROVIDERS: PCP Physician Assistant; Visit Provider Physician Assistant
DX: M17.11 Unilateral primary osteoarthritis, right knee (principal); M25.561 Pain in right knee
CPT/HCPCS: 73562

== ENCOUNTER 2022-11-10 08:17 | Outpatient (CLI) | payer MEDICARE, MEDICAID, SELFPAY ==
--- NOTE | ~2022-11-10 | US_ITS ---
EXAMINATION: US arterial ankle brachial ind DATE: 11/10/2022 09:29 INDICATION: Peripheral vascular disease TECHNIQUE: Segmental pressures and plethysmographic and Doppler waveforms of the brachial and lower e xtremity arteries were obtained. COMPARISON: None. FINDINGS: Right and left brachial artery pressures of 150 mm Hg and 136 mm Hg, respectively, are concordant (no rmal difference <= 30 mmHg). The right ankle-brachial index (ANDRAE) is 1.00 (normal >= 0.9-1.0). The right great toe-brachial index (TBI) is 0.57 (normal >= 0.65). Arterial Doppler waveforms are biphasic at the right dorsalis pedis a rtery and triphasic at the right posterior tibial artery, both with brisk systolic upstrokes. The left ANDRAE is 1.01. The left TBI is 0.54. Arterial Doppler waveforms are biphasic at the left poste rior tibial and triphasic at the left dorsalis pedis artery, both with brisk systolic upstrokes. IMPRESSION: 1. Mild arterial occlusive disease to the lower limbs with borderline bilateral ABIs and mildly decre ased bilateral TBIs. Reviewed, dictated and finalized at location A. IMPRESSION: 1. Mild arterial occlusive disease to the lower limbs with borderline bilateral ABIs and mildly decreased bilateral TBIs.
== END 2022-11-10 08:18 | disposition home or self-care (01) ==
PROVIDERS: PCP Family Medicine; Visit Provider Physician Assistant Medical
DX: I73.9 Peripheral vascular disease, unspecified (principal)
CPT/HCPCS: 93922

== ENCOUNTER 2024-01-31 01:06 | Day surgery (SDC) | payer MEDICARE, SELFPAY ==
[2024-01-05 12:29] VITALS: BMI 43.2
[2024-01-31 08:00] VITALS: BP 145/82; PULSE 61; RESP 18; TEMP 36.6; O2SAT 98
[2024-01-31 08:09] VITALS: BMI 41.9
[2024-01-31] MEDS: LACTATED RINGERS 1,000 ML 30 ML IV CONT (08:18)
--- NOTE | 2024-01-31 08:28 | WPDANESEPPF ---
Anes - Initial Pre Proc Eval Procedure: Operation Date: 01/31/24 09:30 Proposed Procedures p Screening Colonoscopy - Saad Leon MD Date/Time: 01/31/24 08:28 Surgeon: Saad Leon MD Pre Op Diagnosis: Neoplasm screening Patient Data Age: 63 Gender: F Height: 1.65 m Weight: 114.3 kg Last Vital Signs Temp 97.8 F 01/31/24 08:00 Pulse 61 01/31/24 08:00 Resp 18 01/31/24 08:00 BP 145/82 H 01/31/24 08:00 Pulse Ox 98 01/31/24 08:00 O2 Del Method Room Air 01/31/24 08:00 Allergies Allergy/AdvReac Type Severity Reaction Status Date / Time No Known Allergies Allergy Verified 01/05/24 12:25 Home Medications Medication Instructions Recorded Confirmed Type omeprazole 20 mg capsule,delayed 20 mg PO BID 03/14/20 01/05/24 History release insulin glargine 100 unit/mL (3 55 unit (0.55 mL) subcut BID #15 mL 02/22/22 01/05/24 Rx mL) subcutaneous pen (Lantus Solostar U-100 Insulin) atorvastatin 80 mg tablet 80 mg PO DAILY #90 tabs 04/21/22 01/05/24 Rx blood sugar diagnostic (APU SolutionsTouch #400 ea 04/22/22 09/22/23 Rx Verio test strips) blood-glucose meter,continuous #1 ea 04/22/22 09/22/23 Rx (Dexcom G6 Vocational Horticulture Instructor) blood-glucose sensor (Dexcom G6 #9 ea 04/22/22 09/22/23 Rx Sensor device) lancets 30 gauge (OneTouch Delica #400 ea 04/22/22 09/22/23 Rx Lancets) pen needle, diabetic 33 gauge x #600 ea 04/22/22 09/22/23 Rx 5/32 (Easy Comfort Pen [place]) blood-glucose transmitter (Dexcom #1 ea 10/26/22 09/22/23 Rx G6 Transmitter device) empagliflozin 10 mg tablet 10 mg PO DAILY 90 days #90 tabs 10/26/22 01/05/24 Rx (Jardiance) triamterene 37.5 1 cap PO DAILY #90 caps 05/18/23 01/05/24 Rx mg-hydrochlorothiazide 25 mg capsule amlodipine 5 mg tablet (Norvasc) 10 mg PO DAILY #180 tabs 07/29/23 01/05/24 Rx losartan 100 1 tablet PO DAILY #90 tabs 09/06/23 01/05/24 Rx mg-hydrochlorothiazide 25 mg tablet albuterol sulfate 90 mcg/actuation 1 inh inhalation Q4H PRN shortness 09/22/23 01/05/24 Rx aerosol inhaler of breath or wheezing #8.5 grams fluconazole 150 mg tablet 150 mg PO .PRN #2 tabs 09/22/23 01/05/24 Rx montelukast 10 mg tablet 10 mg PO QHS #90 tabs 09/22/23 01/05/24 Rx semaglutide 2 mg/dose (8 mg/3 mL) 2 mg (0.75 mL) subcut WEEKLY 90 09/22/23 01/05/24 Rx subcutaneous pen injector (Ozempic) days #9 mL hydralazine 10 mg tablet 10 mg PO TID #90 tabs 10/27/23 01/05/24 Rx carvedilol 25 mg tablet 75 mg PO DAILY #270 tabs 11/27/23 01/05/24 Rx insulin aspart See Rx Instructions .Route .COMPLEX 01/05/24 01/05/24 History (niacinamide)(U-100) 100 unit/mL(3 mL) subcutaneous pen (Fiasp FlexTouch U-100 Insulin) Patient hx anesthesia problems: none Family hx anesthesia problems: none Results Review: All pre-operative results and documents have been reviewed as part of the pre-operative evaluation. [facility] Past Medical History Medical History Essential hypertension GERD (gastroesophageal reflux disease) Hyperlipidemia Type 2 diabetes mellitus Surgical History Surgical History H/O carpal tunnel repair H/O hysterectomy with oophorectomy Family History Family History Mother Diabetes mellitus Heart disease Hypertension Sibling ESRD (end stage renal disease) on dialysis Unknown Asthma Hyperlipidemia Arthritis Social History Social History Smoking packs per day: 0.25 Smoking cigarettes per day: 5.0 Years smoked: 10 Smoking pack-years: 2.50 Smoking status: Former smoker Tobacco type: cigarettes Second hand tobacco smoke exposure: Yes Alcohol intake: current Drinks per week: 1 Substance use: never Substance use type: does not use Lack of Transport
[2024-01-31 08:30] LABS: Glucose Point of Care 179 mg/dl (65-105)
--- NOTE | 2024-01-31 08:46 | PM.HPGS ---
History of Present Illness History of Present Illness Consent: Risks, benefits, and alternatives have been discussed and questions answered. Patient agrees to proceed with procedure. Chief complaint: Neoplasm screening Narrative: Albertina Bass is a 63 year old female with colon polyp 4 years ago Review of Systems Review of Systems: All systems reviewed & are unremarkable except as noted in HPI and below PMFSH Past Medical History Medical History (Updated 01/31/24 @ 08:47 by Saad Leon MD) Essential hypertension GERD (gastroesophageal reflux disease) Hyperlipidemia Polyp, colonic Type 2 diabetes mellitus Surgical History Surgical History H/O carpal tunnel repair H/O hysterectomy with oophorectomy Family History Family History Mother Diabetes mellitus Heart disease Hypertension Sibling ESRD (end stage renal disease) on dialysis Unknown Asthma Hyperlipidemia Arthritis Social History Social History Smoking packs per day: 0.25 Smoking cigarettes per day: 5.0 Years smoked: 10 Smoking pack-years: 2.50 Smoking status: Former smoker Tobacco type: cigarettes Second hand tobacco smoke exposure: Yes Alcohol intake: current Drinks per week: 1 Substance use: never Substance use type: does not use Lack of Transportation: No Lack of Food: Never True Current Housing: I Have Housing Concerned About Future Housing: No Difficulty Paying Gas/Electric Bills: No Difficulty Paying for Meds: No Currently Unemployed: No Education: High School Diploma/GED Difficulty w/ Childcare or Family Care: No Living arrangements: alone Occupation/Education: retired Gender identity (if verbalized by the patient): Female Spiritual care concerns: No Agree to blood products: Yes Meds Home Medications and Allergies Home Medications Medication Instructions Recorded Confirmed Type omeprazole 20 mg capsule,delayed 20 mg PO BID 03/14/20 01/05/24 History release insulin glargine 100 unit/mL (3 55 unit (0.55 mL) subcut BID #15 mL 02/22/22 01/05/24 Rx mL) subcutaneous pen (Lantus Solostar U-100 Insulin) atorvastatin 80 mg tablet 80 mg PO DAILY #90 tabs 04/21/22 01/05/24 Rx blood sugar diagnostic (OneTouch #400 ea 04/22/22 09/22/23 Rx Verio test strips) blood-glucose meter,continuous #1 ea 04/22/22 09/22/23 Rx (Dexcom G6 Stitchdown Thread Laster) blood-glucose sensor (Dexcom G6 #9 ea 04/22/22 09/22/23 Rx Sensor device) lancets 30 gauge (OneTouch Delica #400 ea 04/22/22 09/22/23 Rx Lancets) pen needle, diabetic 33 gauge x #600 ea 04/22/22 09/22/23 Rx 5/32 (Easy Comfort Pen [place]) blood-glucose transmitter (Dexcom #1 ea 10/26/22 09/22/23 Rx G6 Transmitter device) empagliflozin 10 mg tablet 10 mg PO DAILY 90 days #90 tabs 10/26/22 01/05/24 Rx (Jardiance) triamterene 37.5 1 cap PO DAILY #90 caps 05/18/23 01/05/24 Rx mg-hydrochlorothiazide 25 mg capsule amlodipine 5 mg tablet (Norvasc) 10 mg PO DAILY #180 tabs 07/29/23 01/05/24 Rx losartan 100 1 tablet PO DAILY #90 tabs 09/06/23 01/05/24 Rx mg-hydrochlorothiazide 25 mg tablet albuterol sulfate 90 mcg/actuation 1 inh inhalation Q4H PRN shortness 09/22/23 01/05/24 Rx aerosol inhaler of breath or wheezing #8.5 grams fluconazole 150 mg tablet 150 mg PO .PRN #2 tabs 09/22/23 01/05/24 Rx montelukast 10 mg tablet 10 mg PO QHS #90 tabs 09/22/23 01/05/24 Rx semaglutide 2 mg/dose (8 mg/3 mL) 2 mg (0.75 mL) subcut WEEKLY 90 09/22/23 01/05/24 Rx subcutaneous pen injector (Ozempic) days #9 mL hydralazine 10 mg tablet 10 mg PO TID #90 tabs 10/27/23 01/05/24 Rx carvedilol 25 mg tablet 75 mg PO DAILY #270 tabs 11/27/23 01/05/24 Rx insulin aspart See Rx Instructions .Route .COMPLEX 01/05/24 01/05/24 History (niacinamide)(
[2024-01-31 09:15] VITALS: BP 112/62; PULSE 59; RESP 16; O2SAT 94
[2024-01-31 09:25] VITALS: BP 117/75; PULSE 57; RESP 18; O2SAT 97
[2024-01-31 09:30] LABS: Glucose Point of Care 156 mg/dl (65-105)
[2024-01-31 09:35] VITALS: BP 101/64; PULSE 55; RESP 21; O2SAT 98
== END 2024-01-31 09:49 | disposition home or self-care (01) ==
PROVIDERS: PCP Family Medicine; Referring Provider Physician Assistant Medical; Visit Provider Internal Medicine Gastroenterology
PROC: 0DJD8ZZ Inspection of Lower Intestinal Tract, Via Natural or Artificial Opening Endoscopic (ICD-10-PCS; CPT 45378; principal; 2024-01-31 09:30)
DX: Z12.11 Encounter for screening for malignant neoplasm of colon (principal); D12.2 Benign neoplasm of ascending colon; D12.4 Benign neoplasm of descending colon; K64.8 Other hemorrhoids; I10 Essential (primary) hypertension; E78.5 Hyperlipidemia, unspecified; K21.9 Gastro-esophageal reflux disease without esophagitis; E11.9 Type 2 diabetes mellitus without complications; E66.9 Obesity, unspecified; Z68.41 Body mass index [BMI] 40.0-44.9, adult; Z79.4 Long term (current) use of insulin; Z79.85 Long-term (current) use of injectable non-insulin antidiabetic drugs; Z79.84 Long term (current) use of oral hypoglycemic drugs; Z79.51 Long term (current) use of inhaled steroids; Z98.890 Other specified postprocedural states; Z87.891 Personal history of nicotine dependence; Z82.49 Family history of ischemic heart disease and other diseases of the circulatory system
CPT/HCPCS: 45385; 82948; 88305; J2003; J2704; J7120

== ENCOUNTER 2024-05-03 15:25 | Outpatient (CLI) | payer MEDICARE, SELFPAY ==
[2024-05-03 16:38] LABS: Add Urine Microscopic? NO; Appearance Urine Clear (Clear); Bilirubin Urine Negative (Negative); Blood Urine Negative (Negative); Color Urine Yellow (Yellow); Glucose Urine UA 3+ mg/dL (Negative); Ketones Urine Negative (Negative); Leukocyte Esterase Ur Negative LEU/UL (Negative); Nitrate Urine Negative (Negative); Protein Urine Negative (Negative); Specific Grav Ur 1.014 (1.001-1.035); Urobilinogen Urine 0.2 mg/dL (<2.0)
[2024-05-03 16:48] LABS: Alanine Aminotransferase 25 U/L (6-35); Albumin Level 4.4 g/dL (3.5-5.1); Alkaline Phosphatase 81 U/L (38-126); Anion Gap 1 mmol/L (4-12); Aspartate Amino Transferase 21 U/L (14-36); Bilirubin,Total 0.7 mg/dL (0.2-1.3); Blood Urea Nitrogen 17 mg/dL (7-17); Calcium 9.5 mg/dL (8.4-10.2); Carbon Dioxide 32 mmol/L (22-30); Chloride 103 mmol/L (98-107); Cholesterol 190 mg/dL (0-200); Estimated Glomerular Filt Rate > 60; Glucose 108 mg/dL (65-110); HDL Direct 39 mg/dL; Sodium 136 mmol/L (137-145); Triglycerides 267 mg/dL (<150)
[2024-05-03 17:00] LABS: LDL Cholesterol Direct 95 mg/dL
[2024-05-03 17:08] LABS: Hemoglobin A1C 10.2 % (<5.7)
[2024-05-03 17:27] LABS: Free T4 Free Thyroxine 0.95 ng/dL (0.78-2.19)
== END 2024-05-03 15:26 | disposition home or self-care (01) ==
PROVIDERS: Student in an Organized Health Care Education/Training Program; PCP Family Medicine; Visit Provider Family Medicine
DX: E78.5 Hyperlipidemia, unspecified (principal); I10 Essential (primary) hypertension; E11.9 Type 2 diabetes mellitus without complications; E55.9 Vitamin D deficiency, unspecified
CPT/HCPCS: 36415; 80053; 80061; 81003; 83036; 84439; 84443

== ENCOUNTER 2024-10-16 10:59 | Outpatient (CLI) | payer MEDICARE, SELFPAY ==
[2024-10-16 11:35] LABS: Basophils Percent Auto 0.6 % (0.2-1.2); Eosinophils Absolute Auto 0.2 K/mm3 (0-0.3); Eosinophils Percent Auto 2.1 % (0-4.4); Hematocrit 42.8 % (37.0-47.0); Hemoglobin 14.1 g/dL (12.0-15.0); Immature Granulocyte Absolute 0.02 K/mm3 (0.00-0.031); Immature Granulocyte Percent A 0.3 % (0-0.5); Lymphocytes Absolute Auto 2.83 K/mm3 (0.9-3.2); Lymphocytes Percent Auto 39.6 % (18.3-44.2); Mean Corpuscular HGB Conc 32.9 g/dl (32-36); Mean Corpuscular Hemoglobin 30.3 pg (26-34); Mean Platelet Volume 12.7 fl (7.4-10.4); Monocytes Absolute Auto 0.6 K/mm3 (0.1-0.6); Neutrophils Absolute Auto 3.5 K/mm3 (1.3-6.7); Neutrophils Percent Auto 49.4 % (45.5-73.1); Platelet Count Result 169 k/mm3 (150-375); Red Blood Count 4.65 M/mm3 (4.2-5.4); Red Cell Distribution Width 12.6 % (11.5-14.5); White Blood Count 7.2 K/mm3 (4.5-10.0)
--- OUTSIDE RECORDS SUMMARY | 2024-10-16 12:06 | XMS_ITS | Referral Summary ---
Author Organization [facility] at the [facility] Office Center Address [address] [place] [address] Care Team Providers Care Commercial Cleaner Name Role Phone Tessa Tan MD Primary Care Provider [phone] Allergies Active Allergy Reactions Criticality Noted Date Comments Lisinopril Cough Medium 03/08/2019 Medications Ventolin HFA 90 mcg/actuation inhaler 02/21/2020 Active amLODIPine (NORVASC) 10 mg tablet TK 1 T PO QD. 03/18/2020 Active Advair HFA 115-21 mcg/actuation inhaler 02/21/2020 Active glipiZIDE XL (GLUCOTROL XL) 10 mg 24 hr tablet 03/28/2020 Active hydroCHLOROthiaz caio (HYDRODIURIL) 25 mg tablet 02/21/2020 Active Lantus Solostar U-100 Insulin 100 unit/mL (3 mL) insulin pen 02/21/2020 Act collins labetaloL (NORMODYNE,TRAND ATE) 200 mg tablet 02/21/2020 Active losartan (COZAAR) 100 mg tablet 02/21/2020 Active metFORMIN (GLUCOPHAGE) 500 mg tablet 02/21/2020 Active montelukast (SINGULAIR) 10 mg tablet 02/21/2020 Active carvedilol CR (COREG CR) 80 mg 24 hr capsule 04/04/2020 Activ e cloNIDine (CATAPRES) 0.3 mg tablet TAKE 1 TABLET BY MOUTH AT NIGHT 04/15/2020 Active Active Problems Problem Noted Date Diagnosed Date Severe obstructive sleep apnea 05/10/2018 Intermittent asthma, not well controlled 015 Allergic rhinitis due to pollen 03/21/2015 GERD without esophagitis 02/06/2015 Rheumatoid arthritis 02/06/2015 Dysphagia 12/31/2014 Immunizations Immunization Administration Dates Next Due DT 06/02/2003 Tdap 04/07/2019 Social History Tobacco Use Types Packs/Day Years Used Date Smoking Tobacco: Former Cigarettes 0.3 13 1 - 2011 Smokeless Tobacco: Never Personal Safety Answer Date Recorded Getting School Help Needed Not on file 07/16 Comments Unknown Sex and Gender Information Value Date Recorded Sex Assigned at Not on file Legal Sex Female 6:36 PM APARTMENT LEASING AGENT Gender Identity Not on file Sexual Orientation Not on file Last Filed Vital Signs Vital Sign Reading Time Taken Comments Blood Pressure 166/101 05/05/2020 3:42 PM APARTMENT LEASING AGENT Pulse 86 05/05/2020 3:42 PM APARTMENT LEASING AGENT Temperature 36.6 C (97.8 F) 05/05/2020 3:42 PM APARTMENT LEASING AGENT Respiratory Rate 18 05/05/2020 3:42 PM APARTMENT LEASING AGENT Oxygen Saturation 95% 05/05/2020 3:42 PM APARTMENT LEASING AGENT Inhaled Oxygen Concentration - - Weight 112 kg (247 lb) 05/05/2020 3:42 PM APARTMENT LEASING AGENT Height 165.1 cm (5' 5) 05/05/2020 3:42 PM APARTMENT LEASING AGENT Body Mass Index 41.1 05/05/2020 3:42 PM APARTMENT LEASING AGENT Plan of Treatment Not on file Insurance [employer] MEDICARE PPO IDPA IDPA Care Teams Commercial Cleaner Relationship Specialty Start Date End Date Tessa Tan MD [address] [place] [address] PCP - General Internal Medicine 04/15/20
--- OUTSIDE RECORDS SUMMARY | 2024-10-16 12:06 | XMS_ITS | Clinical Summary ---
Author Organization [facility] at the [facility] Office Center Address [address] [place] [address] Care Team Providers Care Email Production Consultant Name Role Phone Tessa Tan MD Primary Care Provider [phone] Allergies Active Allergy Reactions Criticality Noted Date [...] Dates Next Due DT 06/02/2003 Tdap 04/07/2019 Surgical History Surgery Date Site/Laterality Comments CARPAL TUNNEL RELEASE Bilateral HYSTERECTOMY Medical History Medical History Date Comments HTN (hypertension) DM (diabetes mellitus) (HCC) Asthma Family History Medical History Relation Name Comments Diabetes Brother Asthma Mother Diabetes Mother Hypertension Mother Diabetes Sister 1 Diabetes Sister 2 Relation Name Status Comments Brother Alive Father Mother Alive Sister 1 Alive Sister 2 Alive Social History Tobacco Use Types Packs/Day Years Used Date Smoking Tobacco: Former Cigarettes 0.3 13 1 999 - 2012 Smokeless Tobacco: Never Personal Safety Answer Date Recorded Getting School Help Needed Not on file 07/16 Comments Unknown Sex and Gender Information Value Date Recorded Sex Assigned at Not on file Legal Sex Female 6:36 PM WE[employer]NESS HE[employer] COACH Gender Identity Not on file Sexual Orientation Not on file Obstetrics History Last Filed Vital Signs Vital Sign Reading Time Taken Comments Blood Pressure 166/101 05/05/2020 3:42 PM WE[employer]NESS HE[employer] COACH Pulse 86 05/05/2020 3:42 PM WE[employer]NESS HE[employer] COACH Temperature 36.6 C (97.8 F) 05/05/2020 3:42 PM WE[employer]NESS HE[employer] COACH Respiratory Rate 18 05/05/2020 3:42 PM [employer] HE[employer] COACH Oxygen Saturation 95% 05/05/2020 3:42 PM WE[employer]NESS HE[employer] COACH Inhaled Oxygen Concentration - - Weight 112 kg (247 lb) 05/05/2020 3:42 PM WE[employer]NESS HE[employer] COACH Height 165.1 cm (5' 5) 05/05/2020 3:42 PM WE[employer] HE[employer] COACH Body Mass Index 41.1 05/05/2020 3:42 PM WE[employer]NESS HE[employer] COACH Plan of Treatment Not on file Insurance [employer] MEDICARE PPO IDPA IDPA Care Teams Email Production Consultant Relationship Specialty Start Date End Date Tessa Tan MD [address] [place] [address] PCP - General Internal Medicine 04/15/20
--- OUTSIDE RECORDS SUMMARY | 2024-10-16 12:06 | XMS_ITS | CONTINUITY OF CARE DOCUMENT ---
Author Name pamelagilma pamelagilma Address Unknown Organization [facility] Address [address] [place] [address] Phone [phone] Care Team Providers Care Rn Medical Surgical Name Role Phone Marcel Osuna MD Unavailable [phone] Marcel Osuna MD Unavailable [phone] PROBLEMS Condition Status Date Provider Notes Cardiology examination active Marcel Osuna MD Diabetes, Type 2 active Marcel Osuna MD Hypertension active Marcel Osuna MD JOSE - on CPAP active Marcel Osuna MD Asthma active Marcel Osuna MD (History of) ENCOUNTERS Date Type Provider Location Encounter Diag nosis - In-person encounter Office Visit Macrel Osuna MD [facility] - In-person encounter Office Visit Marcel Osuna MD [facility] Cardiology examinationDiabetes , Type 2HypertensionOSA - on CPAPAsthma VITAL SIGNS Date Observation Value Provider Body Mass Index (Ratio) 43.26 kg/m2 Janeth Osuna MD blood pressure, diastolic 80 mm[Hg] Arianne Lee blood pressure, systolic 130 mm[Hg] Karen Lee oxygen saturation, oximetry 95 % Jason Lee respiratory rate E&M 16 /min Meri eLe pulse rate 85 /min Jason quiles weight E&M 260 [lb_av] Jason quiles height E&M 65 [in_i] Jason Dickson azucena Body Mass Index (Ratio) 43.43 kg/m2 Janeth Osuna MD oxygen saturation, oximetry 97 % [facility] pulse rate 62 /min [facility] [place] height E&M 65 [in_i] [facility] weight E&M 261 [lb_av] [facility] blood pressure, diastolic 97 mm[Hg] [facility], systolic 180 mm[Hg] Grisel [facility] respiratory rate E&M 16 /min [facility] [place] ALLERGIES No Known Drug Allergies HISTORY OF MEDICATION USE Medication Status Instructions Dates Provider Indications Com ments atorvastatin 80 mg tablet active TAKE 1 TABLET BY MOUTH EVERY NIGHT [facility] metformin 500 mg tablet active TAKE 1 TABLET BY MOUTH TWICE DAILY [facility] hydrochlorothiazide 25 mg tablet active Take 1 tablet by mouth once a day Jsaon Lee losartan-hydrochloroth iazide 100-25 mg tablet active TAKE 1 TABLET BY MOUTH DAILY [facility] fluticasone propionate 50 mcg/actuation spray,suspension active Maybee 1 spray into both nostrils once a day Jason Lee metoprolol succinate 25 mg tablet extended release 24 hr active TAKE 1 TABLET BY MOUTH DAILY IN THE MORNING [facility] montelukast 10 mg tablet active TAKE 1 TABLET BY MOUTH EVERY DAY [facility] amlodipine 10 mg tablet active TAKE 1 TABLET BY MOUTH EVERY DAY. [facility] omeprazole 20 mg capsule,delayed release(DR/EC) active TAKE 1 CAPSULE BY MOUTH TWICE DAILY [facility] glipizide 10 mg tablet extended release 24hr active TAKE 1 TABLET BY MOUTH EVERY DAY [facility] carvedilol 25 mg tablet active Take 1 tablet by mouth twice a day Jason Crawford U-100 Insulin 100 unit/mL solution active Inject subcutaneously twice a day 30 Units in the morning and 40 Units in the evening Jason Lee SOCIAL HISTORY Date Observation Value Provider drug use no Marcel Osuna MD alcohol use no Marcel Osuna MD social history E&M S moking History: Reji chavez is a former smoker. Marcel Osuna MD social history reviewed E&M revi ewed - no changes required Marcel Osuna MD number of years as a smoker 20 a Jason Lee cigarette use yes Jason Daryl blackazucena smoking status Former smoker Jason Be social history E&M S moking History: Reji chavez is a former smoker. Marcel Osuna MD social history reviewed E&M revi ewed - no changes required Marcel Osuna MD number of years as a smoker 20 a Chastity [place] cigarette use yes Chastity [place] smoking status Former smoker Chastity Hog ue FAMILY HISTORY Family Member Condition Mother Family History of Hy pertension: Mother Family History of Hy perlipidemia: Mother Family History of Di abetes: INSURANCE PROVIDERS Payer name Policy type / Coverage type [facility] libertarian ID [employer] HMO [id number] ADVANCE DIRECTIVES Name Date DISCUSSED - NO DECISION MADE TREATMENT PLAN Date Name Performer [id number],C,per pcp Marcel Osuna MD [id number],C, B P today: 130/80 P rior BP: 180/97 (01/23/2021) Marcel Osuna MD [id number],S, Marcel Osuna MD [id number],C, N ormally not this high. Stressed today B P today: 180/97 Her updated medication list for this problem includes: Hydrochlorothiazide 25 Mg Tablet (Hydrochlorothiazide) Losartan-hydrochlorothiazide 100-25 Mg Tablet (Losartan-hydrochlorothiazide) ..... Take 1 tablet by mouth daily Metoprolol Succinate 25 Mg Tablet Extended Release 24 Hr (Metoprolol succinate) ..... Take 1 tablet by mouth daily in the morning Amlodipine 10 Mg Tablet (Amlodipine) ..... Take 1 tablet by mouth every day. Carvedilol 25 Mg Tablet (Carvedilol) Marcel Osuna MD Cardiology:per pcp Marcel Osuna MD Cardiology: B P today: 130/80 P rior BP: 180/97 (01/23/2021) Marcel Osuna MD Cardiology Marcel Osuna MD Cardiology: N ormally not this high. Stressed today B P today: 180/97 Her updated medication list for this problem includes: Hydrochlorothiazide 25 Mg Tablet (Hydrochlorothiazide) Losartan-hydrochlorothiazide 100-25 Mg Tablet (Losartan-hydrochlorothiazide) ..... Take 1 tablet by mouth daily Metoprolol Succinate 25 Mg Tablet Extended Release 24 Hr (Metoprolol succinate) ..... Take 1 tablet by mouth daily in the morning Amlodipine 10 Mg Tablet (Amlodipine) ..... Take 1 tablet by mouth every day. Carvedilol 25 Mg Tablet (Carvedilol) Marcel Osuna MD Date Name Complete Echo CT, Coronary Calcium Score HISTORY OF PROCEDURES Procedure Date Procedure Name Provider Procedure Notes S tatus EKG Marcel Osuna MD completed
--- OUTSIDE RECORDS SUMMARY | 2024-10-16 12:06 | XMS_ITS | Continuity of Care Document ---
Author Organization [facility] Address [address] [place] [id number] Phone Care Team Providers Care Area Representative Name Role Phone Zach Collins MD Unavailable Unavailable Allergies, Adverse Reactions, Alerts Substance Reaction Status Criticality No Known Allergies Active No Inform ation Medications Medication Instructions Dosage Effective Dates (start - stop) Status Comments hydrocortisone 2.5 % topical cream with perineal applicator apply one dose at bedtime with applicator to the affected area(s) for 6 nights, then as needed - Active omeprazole 20 mg tablet,delayed release take 1 Tablet by Oral route once daily - Active Cancel the previous order for Omeprazole 20mg bid. Insurance will only cover once per day dosing. Pt will purchse the second dose otc. hydrochlorothiazide 25 mg tablet take 1 tablet by oral route every day 25 MG - Active labetalol 100 mg tablet take 2 tablet by oral route 2 times every day 200 MG - Active Lantus Solostar U-100 Insulin 100 unit/mL (3 mL) subcutaneous pen inject 36 units by subcutaneous route at HS - Active metformin 500 mg tablet take 1 tablet by ORAL route 2 times every day with morning and evening meals 500 MG - Active glipizide 5 mg tablet take 1 tablet by oral route every day before meals 5 MG - Active Preparation H Hydrocortisone 1 % topical cream apply by topical route every day to the affected area(s) - Active Ventolin HFA 90 mcg/actuation aerosol inhaler inhale 2 puff by inhalation route every 4 - 6 hours as needed - Active meloxicam 15 mg tablet take 1/2 tablet by oral route twice day - Active fluticasone 50 mcg/actuation nasal spray,suspension inhale 1 spray by intranasal route every day in each nostril 50 MCG - Active amlodipine 10 mg tablet take 1 tablet by oral route every day 10 MG - Active Procedures Procedure Date Colonoscopy Flex; W/remov Les- 20 Moderate Sedation - Same Physician Colonoscopy Flex; Dx (sep Pro) 18 Moderate Sedation - Same Physician Colonoscopy Flex; W/remov Les- Colonoscopy; W/ Injection Ugi Endo; Dx W/wo Collec Specm 18 Moderate Sedation - Same Physician Level Iv-surg Path Gross/t, Lvl IV ASC Facility Charge Colonoscopy Flex; W/remov Les- 17 Moderate Sedation - Same Physician Offic/outpt E&m Estab Low-mod 7 Offic/outpt E&m Estab Minor Offic/outpt E&m Estab Low-mod 5 Ugi Endo; W/bx 1/mx ASC Facility Charge Level Iv-surg Path Gross/t, Lvl IV Special Stains; Grp I Jimmie Offic/outpt E&m Estab Mod-hi 2 15 Zero Ticket [facility] Facility Charge Colonoscopy Flex; W/remov Les- 13 Level Iv-surg Path Gross/micro 13 Advance Directives Directive Yes / No Effective Date File Name No Information Encounters Encounter Description Practice Location Reason(s) For Visit Diagnoses Date Provider Providers Copied on Encounter [facility], [address] [place] [address], [place], [place], [id number] tel:[phone] [facility] No Information 0 Dennis Serrano. [address] [place] [address], [id number], . tel:[phone] [facility], [address] [place] [address], [place], [place], [id number] tel:[phone] [facility] No Information 0- 0 Casi REYES Ilche. [address] [place] [address], [id number], [place]. tel:[phone] Referring Provider: Guillermo Gaitan MD, [address] [place] [address], [id number]. tel:[phone] [facility], [address] [place] [address], [id number] tel:[phone] [facility] No Information 0 Casi REYES Il[place]. [address] [place] [id number], [place]. tel:[phone] Referring Provider: Guillermo Gaitan MD, [address] [place] [address], [id number]. tel:[phone] [facility], [address] [place] [address], [id number] tel:[phone] [facility] No Information 8 Casi REYES Ilche. [address] [place] [address], [id number], [place]. tel:[phone] Referring Provider: Guillermo Gaitan MD, [address] [place] [address], [id number]. tel:[phone] [facility], [address] [place] [address], [id number] tel:[phone] [facility] No Information 8 Casi REYES Ilche. [address] [place] [address], [id number], [place]. tel:[phone] Referring Provider: Guillermo Gaitan MD, [address] [place] [address], [id number]. tel:[phone] [facility], [address] [place] [address], [id number] tel:[phone] [facility] Abnormal finding on diagnostic imaging of other part of digestive tract 7 John Elizabeth. [address] [place] [address], [id number], [place]. tel:[phone] [facility], [address] [place] [address], [id number] tel:[phone] [facility] No Information Srikanth Adams. [address] [place] [address], [id number], [place]. tel:[phone] Referring Provider: Guillermo Gaitan MD, [address] [place] [address], [id number]. tel:[phone] [facility], [address] [place] [address], [id number] tel:[phone] [facility] No Information [facility]. [address] [place] [address], [id number], [place]. tel:[phone] Referring Provider: Bryan Shepard, [address] [place] [address], [id number]. tel:[phone] [facility], [address] [place] [address], [id number] tel:[phone] [facility] Hemorrhage of anus and rectumOther hemorrhoidsB enign neoplasm of cecumBenign neoplasm of descending colon Srikanth Adams. [address] [place] [address], [id number], [place]. tel:[phone] Referring Provider: Guillermo Gaitan MD, [address] [place] [address], [id number]. tel:[phone] Offic/outpt E&m Estab Low-mod [facility], [address] [place] [address], [id number] tel:[phone] [facility] hemorrhoids (chief complaint) Rectal bleedingPers onal history of colonic polypsConsti pation, unspecifiedU nspecified hemorrhoids Collin Parra. [address] [place] [address], [place], [place], [id number], [place]. tel:[phone] Referring Provider: Guillermo Gaitan MD, [facility] [place], [address]. tel:[phone] [facility], [address] [place] [address], [id number] tel:[phone] [facility] No Information 6 Terri Mohan. [address] [place] [address], [id number], [place]. tel:[phone] Offic/outpt E&m Estab Minor [facility], [address] [place] [address], [id number] tel:[phone] [facility] colorectal complaints (chief complaint) Constipation , unspecifiedH elicobacter pylori [H. pylori] as the cause of diseases classified elsewherePer autumn history of colonic polypsLong term use of non-steroida l anti-inflamm atories 6 Collin Parra. [address] [place] [address], [id number], [place]. tel:[phone] Referring Provider: Guillermo Gaitan MD, [address] [place] [address], [id number]. tel:[phone] [facility], [address] [place] [address], [id number] tel:[phone] [facility] Helicobacter pylori [H. pylori] as the cause of diseases classified elsewhere 5 Collin Parra. [address], [place], [id number], [place]. tel:[phone] Offic/outpt E&m Estab Low-mod [facility], [address] [place] [address], [id number] tel:[phone] [facility] H pylorit gastritis (chief complaint) Helicobacter pylori [H. pylori] as the cause of diseases classified elsewhere 5 Collin [employer] Aida. [address], [place], [id number], [place]. tel:[phone] [facility], [address] [place] [address], [id number] tel:[phone] [facility] Helicobacter pylori [H. pylori] as the cause of diseases classified elsewhere 5 Collin Parra. [address] [place] [address], [id number], [place]. tel:[phone] [facility], [address] [place] [address], [id number] tel:[phone] [facility] H. pylori GI infection 5 Sajan Steiner. [address] [place] [address], [id number], [place]. tel:[phone] [facility], [address] [place] [address], [id number] tel:[phone] [facility] DysphagiaDis order, esophageal NOSGastritis NEC w/o hemorrhageDu odenal ulcer, H.pylori 5 Sajan Steiner. [address] [place] [address], [id number], [place]. tel:[phone] [facility], [address] [place] [address], [id number] tel:[phone] [facility] No Information [facility]. [address] [place] [address], [id number], [place]. tel:[phone] Referring Provider: Jatin Alex, [address] [place] [address], [id number]. tel:[phone] [facility], [address] [place] [address], [id number] tel:[phone] [facility] No Information 5 Amanuel REYES [facility]. [address] [place] [address], [id number], [place]. tel:[phone] Offic/outpt E&m Estab Mod-hi 2 [facility], [address] [place] [address], [id number] tel:[phone] [facility] upper GI complaints (chief complaint) Constipation Burning epigastric pain 5 Collin SPAULDINGN Aida. [address] [place] [address], [id number], [place]. tel:[phone] Zero Ticket [facility], [address] [place] [address], [id number] tel:[phone] [facility] [facility] [employer] [facility] No Information 5 John Elizabeth. [address] [place] [address], [id number], [place]. tel:[phone] [facility], [address] [place] [address], [id number] tel:[phone] [facility] No Information 3 [facility]. [address] [place] [address], [id number], [place]. tel:[phone] Referring Provider: Glenn Watt, [address] [place] [address], [id number]. tel:[phone] [facility], [address] [place] [address], [id number] tel:[phone] [facility] Colon polypScreeni ng for colon cancer 3 John Elizabeth. [address] [place] [address], [id number], [place]. tel:[phone] [facility], [address] [place] [address], [id number] tel:[phone] [facility] No Information 3 John Elizabeth. [address] [place] [address], [id number], [place]. tel:[phone] [facility], [address] [place] [address], [id number] tel:[phone] [facility] No Information 3 John Elizabeth. [address] [place] [address], [id number], [place]. tel:[phone] Family History Family Member Type Diagnosis Age At Onset Mother Problem (finding) Colon polyps Problem (finding) No family history of Cr ohn's disease Problem (finding) No family history of Ca ncer, colon Payers Payer name Insurance type Covered green party ID Nando ruiz(s) No Information Social History Type Description Quantity Date Captured Comments Sex Female Smoking Status No Information Chief Complaint And Reason For Visit No Information Reason For Referral Reason For Referral No Information Plan Of Treatment Date Type Action Status Patient Education Colonoscopy: Before You r Procedure completed Patient Education Hemorrhoids: After Your Visit completed Patient Education Colon Polyps: After You r Visit completed Patient Education Colonoscopy: Before You r Procedure completed Patient Education Rubber Band Ligation fo r Hemorrhoids: completed Patient Education Upper GI Endoscopy: Bef mireya Your Proced completed History Of Present Illness Encounter Date Complaint History Of Prese nt Illness hemorrhoids Miss Bass is a 56 year old female who is here today at the request of Dr Gaitan for hemorrhoids. She had a colonoscopy in July 2012 which showed small internal hemorrhoids as well as a sigmoid tubular adenoma. Over the past few months, she has been experincing painless bright red blood with wiping, BM's are twice a day on Senna. She has tried baths as well as Preparation H with worseing hematochezia. Her mother had colon polypsDenies change in appetite or weight loss. Denies UGI symptoms. June 2016: Normal CMP and TSH August 2016: KUB-nonspecific bowel gas pattern colorectal complaints Miss Bass is a 55 year old female who is here today for an RTC of H pylori gastritis. She has a known history of HTN, arthritis on Meloxicam and Naproxen, H pylori gastritis in 2014 and successfully treated. She remains on Meloxicam but stopped the Naproxen. Heartburn is controlled on Omeprazole 20mg bid, marisol dysphagia or weight loss. Bowel movements are daily to every other day- improved since addition of fiber supplement and prn use of Miralax. Denies pain or hematochezia. Colonoscopy in 07/2012 showed small sized internal hemorrhoids, a 5mm tubular adenoma in the sigmoid colon Labs 01/2016: Normal CBC and CMP H pylorit gastritis Miss Bass i s a 54 year old female who is here today for an RTC of H pylori gastritis. She has a known history of HTN, arthritis on Meloxicam and Naproxen, and obesity. In September she was treated with triple therapy for H pylori and was reseen in October for continued intermittent solid food dysphagia, abdominal bloating, epigastric reflux, and post nasal drip in which Fluticasone was ordered. Esophagram on November 29 showed normal esophageal motility, mild moderate GERD without stricture or obstruction. EGD on 12/31/14 showed 2 cm hiatal hernia, and Hpylori gastritis and was treated with Amoxicillin and Levaquin. Repeat UBT in March was once again positive- she was then treated with Amoxicillin 1 Gm tid and Flagyl 500mg tid for 2 weeks. Insurnace would not cover change in PPI- so she has remained on Omeprazole 20mg bid.Today, she states that her epigastric burning has resolved- previous belching and abdominal bloating has resolved. She stopped the prn Naproxen and has also decreased use of Meloxicam to prn. Bowel movements daily. upper GI complaints Miss Kali russell s a 54 year female referred to our office for multiple upper GI symptoms by Dr Clement. She has a known history of HTN, arthritis on Meloxicam and Naproxen, and obesity. In September she was treated with triple therapy for H pylori and was reseen in October for continued intermittent solid food dysphagia, abdominal bloating, epigastric reflux, and post nasal drip in which Fluticasone was ordered. Esophagram on November 29 showed normal esophageal motility, mild moderate GERD without stricture or obstruction. She was recently seen in the ER for abdominal pain and started on Cipro for UTI as well as negative KUB but was instructed to start Colace 100mg bid. Labs showed normal amylase, lipase, CBC, CMP. Today, she states that she continues to have intermittently throat itching and burning as well as epigastric burning reflux. Abdominal bloating and intermittent solid food dyphagia especially with dry meats- chicken. She is able to tolerate swallowing liquids and medications. She has been taking Omeprazole 40mg prn. Bowel movements every 1-3 days, she has not started Colace yet. Colonoscopy in July 2012 showed small sized internal hemorrhoids, that were not inflamed. 5mm sigmoid tubular adenoma sessile polyp which was removed by cold snare polypectomy was performed and it was retrieved. Functional Status Date Functional Assessmen t No Information Instructions Date Instruction Additional Infor arronlalito Repeat colonoscopy w ascencion 3 months at hospital allow 90 minutes any MD Related to Benign neoplasm of cecum Anusol HC 2.5 % crea m with applicator x 6 nights then prn Related to Rectal bleeding RBL literature Related to Recta l bleeding Omeprazole 20mg bid 30 min before meals #60 12 refills Related to Helicobacter pylori [H. pylori] as the cause of diseases classified elsewhere Continue Fiber supplement Relate d to Constipation, unspecified Continue Omeprazole 20mg bid Rel ated to Helicobacter pylori [H. pylori] as the cause of diseases classified elsewhere Change Omperazole 20 mg twice a day 30min before meals #60 3 refills Related to Burning epigastric pain Miralax 17gm as needed Related t o Constipation Colace 100mg twice a day Related to Constipation Assessments Type Assessment Date No Information Patient Care Teams Name Effective Dates (start - stop) Status Members No Information
--- OUTSIDE RECORDS SUMMARY | 2024-10-16 12:06 | XMS_ITS | Clinical Summary ---
Author Organization [facility] Address [address] [place] [address] Phone Care Team Providers Care Spray Operator Name Role Phone Alisia Larkin MD Unavailable [phone] Guillermo Gaitan MD Primary Care Provider [phone] Allergies No known active allergies Medications hydrochlorothiaz caio 25 MG TabletIndication s:Essential hypertension Take 1 Tab by mouth daily. 90 Tab 3 5 Active fluticasone (FLONASE) 50 MCG/ACT SuspensionIndica tions:Environmen beba allergies 2 Sprays by Nasal route daily. Use in each nostril as directed. 1 Bottle 1 5 Active polyethylene glycol (GLYCOLAX, MIRALAX) Pack Take by mouth. 5 Active albuterol (PROAIR HFA) 108 (90 BASE) MCG/ACT Aerosol Solution take 2 Puffs by inhalation every 4 hours as needed for Wheezing. 8.5 g 0 6 Active ranitidine (ZANTAC) 150 MG Tablet Take one in am and one at supper time for reflux 60 Tab 3 6 Active amLODIPine (NORVASC) 10 MG TabletIndication s:Essential hypertension with goal blood pressure less than 140/90 Take 0.5 Tabs by mouth daily. 90 Tab 1 6 Active hydrocortisone 2.5 % CreamIndications :Rash of neck Apply 2 times daily. as needed. 30 g 2 6 Active cyclobenzaprine (FLEXERIL) 10 MG TabletIndication s:Acute low back pain with sciatica, sciatica laterality unspecified, unspecified back pain laterality Take 1 Tab by mouth 3 times daily as needed for Muscle spasms. 15 Tab 0 6 Active Meloxicam 15 MG Tablet Take 15 mg by mouth daily. Active VENTOLIN HFA 108 (90 BASE) MCG/ACT Aerosol Solution INHALE 2 PUFFS BY MOUTH EVERY 4 HOURS NEEDED FOR WHEEZING OR COUGH 18 g 1 6 Active lisinopril (PRINIVIL, ZESTRIL) 20 MG Tablet Take 1 Tab by mouth daily. 90 Tab 3 6 Active labetalol (NORMODYNE) 100 MG Tablet Take 1 Tab by mouth 2 times daily. 180 Tab 1 6 Active flunisolide HFA (AEROSPAN) 80 MCG/ACT Aerosol Solution Two puffs twice a day . 1 Inhaler 6 6 Active glipiZIDE (GLUCOTROL) 10 MG Tablet Take 10 mg by mouth daily. Active insulin glargine (LANTUS) 100 UNIT/ML Solution 36 Units by Subcutaneous route nightly. Active losartan (COZAAR) 100 MG Tablet Take 100 mg by mouth daily. Active metFORMIN (GLUCOPHAGE) 500 MG Tablet Take 500 mg by mouth 2 times daily (with meals). Active omeprazole (PRILOSEC) 20 MG CAPSULE DELAYED RELEASE Take 20 mg by mouth 2 times daily. Active Active Problems Problem Noted Date Diagnosed Date GERD without esophagitis 05/26/2015 Intermittent asthma, not well controlled 015 Allergic rhinitis due to animal hair and dander 03/21/2015 Allergic rhinitis due to pollen 03/21/2015 Cough 03/21/2015 Allergic conjunctivitis 03/21/2015 Allergic rhinitis due to [place] Citizen house dust lona e 03/21/2015 H. pylori infection 11/25/2014 Environmental allergies 06/25/2013 Overview (06/25/2013): See [facility] ethics instructor S/P colonoscopy with polypectomy 08/15/2012 Overview (08/24/2012): Repeat based on path of polyp.repeat in 5 years. Carpal tunnel syndrome 07/07/2012 Overview (07/07/2012): Bilateral both hands Essential hypertension 06/09/2012 Cold sore 06/09/2012 Family History Medical History Relation Name Comments Breast Cancer Maternal Grandmother Stroke Maternal Grandmother Asthma Mother Diabetes Mother Heart Attack Mother Hypertension Mother Cancer Paternal Grandmother Ovarian Cancer Neg Hx Relation Name Status Comments Father Alive Maternal Grandmother Mother Alive Paternal Grandmother Social History Tobacco Use Types Packs/Day Years Used Date Smoking Tobacco: Former Cigarettes 0.3 20 0 05/02/1989 - 05/02/2009 Smokeless Tobacco: Never Tobacco Cessation:Counseling Given: No Alcohol Use Standard Drinks/Week Comments Yes 0 (1 standard drink = 0.6 oz pur e alcohol) social 2x month PHQ-2 Answer Date Recorded Total Score - Questions 1-9 0 06/03 Comments No Sex and Gender Information Value Date Recorded Sex Assigned at Not on file Legal Sex Female 2:53 AM INDUSTRIAL MANUFACTURING TECHNICIAN Gender Identity Not on file Sexual Orientation Not on file Last Filed Vital Signs Vital Sign Reading Time Taken Comments Blood Pressure 131/69 06/21/2019 8:35 AM INDUSTRIAL MANUFACTURING TECHNICIAN Pulse 92 01/01/2016 11:38 AM CDT Temperature 36.4 C (97.6 F) 01/01/2016 11:38 AM CDT Respiratory Rate 14 06/21/2019 8:35 AM INDUSTRIAL MANUFACTURING TECHNICIAN Oxygen Saturation 96% 06/21/2019 8:35 AM INDUSTRIAL MANUFACTURING TECHNICIAN Inhaled Oxygen Concentration - - Weight 105.2 kg (232 lb) 01/01/2016 11:38 AM CDT Height 165.1 cm (5' 5) 01/01/2016 11:38 AM CDT Body Mass Index 38.61 01/01/2016 11:38 AM CDT Plan of Treatment Health Maintenance Due Date Last Done Comments Hepatitis C Virus (HCV) Screening 1962 Pneumococcal Immunization (50+ years) (1 of 2 - PCV) 1981 Cologuard 2007 Zoster Immunization (1 of 2) 2012 Immunochemical Fecal Occult Blood 05/24/2016 05/24/2015 Respiratory Syncytial Virus (RSV) Immunization (Adult) (1 - Risk 60-74 years 1-dose series) 2022 SARS-COV-2 Immunization ( - 2023- season) 2024 Influenza Immunization (Season Ended) 2024 Colonoscopy 06/21/2029 06/21/2019, 08/09/2012 Colorectal Cancer Screening 06/21/2029 Cervical Cancer Screening (CCS) Discontinued Pap Smear Discontinued 05/02/2000 Mammogram Discontinued 12/01/2015, 11/01, 08/03/2013, Additional history exists DTaP/Tdap/Td Immunization Discontinued 04/07/2019 TdaP Immunization Completed 04/07/2019 HPV/Cotest Discontinued Hepatitis B Immunization Aged Out No longer eligible based on patient's age to complete this topic Human Papillomavirus (HPV) Immunization Aged Out No longer eligible based on patient's age to complete this topic Meningococcal Immunization (ACWY) Aged Out No longer eligible based on patient's age to complete this topic Rotavirus Immunization Aged Out No lo nger eligible based on patient's age to complete this topic Procedures Procedure Name Priority Date/Time Associated Diagnosis Comments MARIA DEL ROSARIO SCREENING BILATERAL DIGITAL W CAD W ARIANNA Routine 12/01/2015 7:02 AM CDT Visit for screening mammogram STOOL, OCCULT BLOOD, SCREEN STAT 05/24/2015 2:55 PM INDUSTRIAL MANUFACTURING TECHNICIAN Rectal or anal pain COLONOSCOPY WITH POLYPECTOMY Routine 08/09/2012 from Last 3 Months or Most Recently Relevant to Health Maintenance Results * MARIA DEL ROSARIO SCREENING BILATERAL DIGITAL W CAD W ARIANNA (12/01/2015 7:02 AM CDT) Anatomical Region Laterality Modality breast Bilateral Mammography 12/01/2015 7:02 AM CDT Impressions 12/01/2015 8:04 AM CDT IMPRESSION: Benign Findings. BI-RADS Category: 2. RECOMMENDATION: Screening is recommended yearly, or as clinically indicated. BI-RADS Category Definitions: (0) Incomplete Assessment, further imaging required (1) Negative (2) Benign Findings (3) Probably Benign Findings (4) Suspicious Abnormality (5) Highly Suggestive of Malignancy (6) Documented Breast Cancer A BENIGN MAMMOGRAPHIC REPORT DOES NOT PRECLUDE THE CLOSE FOLLOWUP AND/OR BIOPSY OF ANY CLINICALLY SUSPECTED LESIONS. THE PATIENT WILL BE NOTIFIED OF HER RESULTS BY MAIL PER FDA AND MQSA REQUIREMENTS. Narrative 12/01/2015 8:04 AM CDT HISTORY: Screening Mammography. TECHNIQUE: BILATERAL DIGITAL SCREENING MAMMOGRAPHY WITH TOMOGRAPHIC IMAGES AND 2D GENERATED IMAGES WERE PERFORMED AND INTERPRETED. THE IMAGES WERE REVIEWED WITH THE ASSISTANCE OF COMPUTER AIDED DETECTION (CAD). FINDINGS: BILATERAL DIGITAL SCREENING MAMMOGRAPHY WITH TOMOGRAPHIC IMAGES AND 2D GENERATED IMAGES WERE PERFORMED AND INTERPRETED. THE IMAGES WERE REVIEWED WITH THE ASSISTANCE OF COMPUTER AIDED DETECTION (CAD). There are scattered fibroglandular densities. No suspicious masses, no secondary signs of malignancy, and no significant interval changes are identified. Procedure Note Hussein Mata MD - 12/01/2015 HISTORY: Screening Mammography. TECHNIQUE: BILATERAL DIGITAL SCREENING MAMMOGRAPHY WITH TOMOGRAPHICIMAGES AND 2D GENERATED IMAGES WERE PERFORMED AND INTERPRETED. THE IMAGESWERE REVIEWED WITH THE ASSISTANCE OF COMPUTER AIDED DETECTION (CAD). FINDINGS: BILATERAL DIGITAL SCREENING MAMMOGRAPHY WITH TOMOGRAPHIC IMAGESAND 2D GENERATED IMAGES WERE PERFORMED AND INTERPRETED. THE IMAGES WEREREVIEWED WITH THE ASSISTANCE OF COMPUTER AIDED DETECTION (CAD). There arescattered fibroglandular densities. No suspicious masses, no secondarysigns of malignancy, and no significant interval changes are identified. IMPRESSION: Benign Findings. BI-RADS Category: 2. RECOMMENDATION: Screening is recommended yearly, or as clinicallyindicated. BI-RADS Category Definitions: (0) Incomplete Assessment, further imaging required (1) Negative (2) Benign Findings (3) Probably Benign Findings (4) Suspicious Abnormality (5) Highly Suggestive of Malignancy (6) Documented Breast Cancer A BENIGN MAMMOGRAPHIC REPORT DOES NOT PRECLUDE THE CLOSE FOLLOWUP AND/ORBIOPSY OF ANY CLINICALLY SUSPECTED LESIONS. THE PATIENT WILL BE NOTIFIEDOF HER RESULTS BY MAIL PER FDA AND MQSA REQUIREMENTS. us Zach Clement MD IMG MAMMO ORDERABLES Final Result * STOOL, OCCULT BLOOD, SCREEN FOR CA (05/24/2015 2:55 PM INDUSTRIAL MANUFACTURING TECHNICIAN) OCCULT BLOOD, STOOL Negative Negative 05/24/2015 3:11 PM INDUSTRIAL MANUFACTURING TECHNICIAN [facility] Stool specimen (specimen) Non-Phlebotomy Collection / Unknown 05/24/2015 2:55 PM INDUSTRIAL MANUFACTURING TECHNICIAN 05/24/2015 3:07 PM INDUSTRIAL MANUFACTURING TECHNICIAN us Billy Bello MD URINE ORDERABLES Final Resul t [facility] [address] [place] [address] 731 * COLONOSCOPY WITH POLYPECTOMY (08/09/2012) Zach Clement MD GENERIC SURGICAL HISTORY Fi nal Result from Last 3 Months or Most Recently Relevant to Health Maintenance Insurance MEDICARE C [employer] [facility] Care Teams Spray Operator Relationship Specialty Start Date End Date Guillermo Gaitan MD [address] [place] [address] PCP - General Accountant Cost 03/15/16 Alisia Larkin MD [address] [facility]. [address] [place] [id number] Consulting Physician Vascular Surgery 07/28/15
[2024-10-16 12:25] LABS: Alanine Aminotransferase 31 U/L (6-35); Albumin Level 4.2 g/dL (3.5-5.1); Alkaline Phosphatase 86 U/L (38-126); Anion Gap 7 mmol/L (4-12); Aspartate Amino Transferase 27 U/L (14-36); Bilirubin,Total 0.8 mg/dL (0.2-1.3); Blood Urea Nitrogen 13 mg/dL (7-17); Calcium 9.5 mg/dL (8.4-10.2); Carbon Dioxide 31 mmol/L (22-30); Chloride 101 mmol/L (98-107); Cholesterol 210 mg/dL (0-200); Estimated Glomerular Filt Rate > 60; Glucose 244 mg/dL (65-110); HDL Direct 40 mg/dL; Potassium 4.6 mmol/L (3.4-5.0); Sodium 139 mmol/L (137-145); Total Protein 7.6 g/dL (6.3-8.2); Triglycerides 234 mg/dL (<150)
[2024-10-16 12:28] LABS: Creatinine Urine 49.3 mg/dL
[2024-10-16 12:36] LABS: LDL Cholesterol Direct 116 mg/dL
[2024-10-16 12:43] LABS: Free T4 Free Thyroxine 1.01 ng/dL (0.78-2.19); Vitamin D 25 Hydroxy 23.5 ng/mL
[2024-10-16 12:46] LABS: MALB Creatinine Ratio < 12.2 mg/g (0-30); Microalbumin Urine Random < 6.0 mg/L (0-16.7)
== END 2024-10-16 11:00 | disposition home or self-care (01) ==
PROVIDERS: PCP Family Medicine; Visit Provider Student in an Organized Health Care Education/Training Program
DX: E78.5 Hyperlipidemia, unspecified (principal); I10 Essential (primary) hypertension; E11.9 Type 2 diabetes mellitus without complications; Z79.4 Long term (current) use of insulin; E11.29 Type 2 diabetes mellitus with other diabetic kidney complication; R80.9 Proteinuria, unspecified; R53.83 Other fatigue; E55.9 Vitamin D deficiency, unspecified
CPT/HCPCS: 36415; 80053; 80061; 82043; 82306; 83036; 84439; 84443; 85025

== ENCOUNTER 2025-01-09 08:30 | Outpatient (RCR) | payer MEDICARE, SELFPAY ==
[2025-01-09 09:25] VITALS: BMI 41.1
--- NOTE | 2025-01-09 09:44 | PCDIET ---
Nutrition referral for MNT completed. Follow up scheduled for TueFeb 27 @ 8:30. Thank you for the referral!
== END 2025-03-19 11:20 | disposition home or self-care (01) ==
LOC: ANHDMC 08:30
PROVIDERS: PCP Family Medicine; Visit Provider Nurse Practitioner Family
DX: E11.29 Type 2 diabetes mellitus with other diabetic kidney complication (principal); E11.65 Type 2 diabetes mellitus with hyperglycemia; R80.9 Proteinuria, unspecified; Z71.89 Other specified counseling; Z71.3 Dietary counseling and surveillance
CPT/HCPCS: 97802; G0108